=== PATIENT | female | born 1990 | race Caucasian/White ===

== ENCOUNTER 2021-12-31 01:42 | Outpatient (CLI) | payer OTHER, SELFPAY ==
[2021-12-31 16:10] LABS: Kit/Specimen SENT
[2021-12-31 16:28] LABS: Abs Immature Grans 0.04 10^3/uL (0.0-0.06); Absolute Basophil Count 0.03 10^3/uL (0.0-0.2); Absolute Eosinophil Count 0.09 10^3/uL (0.0-0.7); Absolute Monocyte Count 0.87 10^3/uL (0.1-0.8); Absolute Neutrophil Count 8.18 10^3/uL (1.2-6.7); Basophils % 0.3; Eosinophils % 0.8; HCT 39.2 % (36.0-46.0); HGB 13.2 g/dL (11.2-15.7); Immature Grans % 0.4; Lymphocytes % 17.1; MCH 27.8 pg (27.0-33.0); MCHC 33.7 % (32.0-36.0); MCV 82.5 fL (80-95); MPV 10.5 fL (8.0-11.0); Monocytes % 7.8; Neutrophils % 73.6; Nucleated RBC 0 %; Platelet Count 291 10^3/uL (130-400); RBC 4.75 10^6/uL (3.93-5.22); RDW 12.3 % (11.7-14.6); RDW-SD 37.2 fL; WBC 11.11 10^3/uL (4.4-10.8)
[2021-12-31 16:36] LABS: Glucose,1 Hr (Glucola) 89 mg/dL (80-140)
[2021-12-31 16:55] LABS: *AMPHETAMINES SCREEN URINE Negative (Negative); *BARBITURATES SCREEN URINE Negative (Negative); *BENZODIAZEPINES SCREEN URINE Negative (Negative); Cannabinoids THC Negative (Negative); Cocaine Screen,Urine Negative (Negative); METHADONE URINE SCREEN Negative (Negative); OPIATES URINE SCREEN Negative (Negative); Tricyclic Antidepressants Negative (Negative)
[2021-12-31 17:05] LABS: TSH (W/Ref FT4) 0.96 uIU/mL (0.36-3.74)
[2022-01-03 09:12] LABS: Hepatitis B Surface Ag Negative (Negative)
[2022-01-03 10:37] LABS: HIV-1/2 Ag & Ab Screen Negative (Negative)
[2022-01-03 11:56] LABS: Rubella IgG Ab (UVM) Positive (See Note); Varicella IgG Antibody Positive (See Note)
[2022-01-03 12:01] LABS: Hepatitis C Ab w Rflx HCV PCR Negative (Negative)
[2022-01-04 22:06] LABS: Syphilis IgG w/Reflex Nonreactive (Nonreactive)
[2022-01-07 11:21] LABS: Buprenorphine Negative ng/mL (Cutoff: 5.0); Norbuprenorphine Negative ng/mL (Cutoff: 2.5)
== END 2021-12-31 01:43 | disposition home or self-care (01) ==
LOC: LBO 01:43
PROVIDERS: Visit Provider Advanced Practice Midwife
DX: Z34.82 Encounter for supervision of other normal pregnancy, second trimester
CPT/HCPCS: 36415; 80307; 82950; 86787; 86803; 86850; 86900; 86901; 87340; 87389; 84443; 85025; 86762; 86780; 87086

== ENCOUNTER 2022-02-11 20:17 | Outpatient (REF) | payer OTHER, SELFPAY ==
[2022-02-16 15:43] LABS: Chlamydia Result Negative (Negative); GC Result Negative (Negative)
== END 2022-02-11 20:18 | disposition home or self-care (01) ==
LOC: LBN 20:17
PROVIDERS: Visit Provider Advanced Practice Midwife
DX: Z34.92 Encounter for supervision of normal pregnancy, unspecified, second trimester (principal); Z3A.19 19 weeks gestation of pregnancy
CPT/HCPCS: 87491; 87591

== ENCOUNTER 2022-04-13 01:50 | Outpatient (CLI) | payer OTHER, SELFPAY ==
[2022-04-13 12:01] LABS: HCT 34.4 % (36.0-46.0); HGB 11.6 g/dL (11.2-15.7); MCH 27.5 pg (27.0-33.0); MCHC 33.7 % (32.0-36.0); MCV 82 fL (80-95); MPV 9.6 fL (8.0-11.0); Platelet Count 281 10^3/uL (130-400); RBC 4.22 10^6/uL (3.93-5.22); RDW 12.6 % (11.7-14.6); RDW-SD 37.1 fL; WBC 15.28 10^3/uL (4.4-10.8)
[2022-04-13 12:21] LABS: Glucose,1 Hr (Glucola) 121 mg/dL (80-140)
== END 2022-04-13 01:51 | disposition home or self-care (01) ==
PROVIDERS: Visit Provider Advanced Practice Midwife
DX: Z34.93 Encounter for supervision of normal pregnancy, unspecified, third trimester (principal); Z3A.28 28 weeks gestation of pregnancy
CPT/HCPCS: 36415; 82950; 85027

== ENCOUNTER → 2022-06-10 00:03 | Outpatient (CLI) | payer OTHER, SELFPAY ==
--- OUTSIDE RECORDS SUMMARY | 2022-06-10 00:04 | XMS_ITS | Clinical Summary ---
:1990 Author Organization [facility] [place] [address] Care Team Providers Name Role Phone None Primary Care Provider Unavailable Allergies No known active allergies Medications No known medications Active Problems Problem Noted Date Nevus 03/31/2014 Immunizations Name Administration Dates Next Due Moderna Covid-19 (Oyster Buyer 100mcg) Vaccine 02/06/2021, 2020 Family History Medical History Relation Comments Hyperlipidemia Father Hypertension Father Diabetes Maternal Grandfather Bipolar Disorder Paternal Grandmother Relation Status Comments Father Maternal Grandfather Paternal Grandmother Social History Tobacco Use Types Packs/Day Years Used Date Never Smoker Smokeless Tobacco: Never Used Alcohol Use Standard Drinks/Week Comments Yes 0 (1 standard drink = 0.6 oz pure alcoho l) Alcohol Habits Answer Date Recorded How often do you have a drink containing alcohol? 2-4 times a month 10/23/2019 How many drinks containing alcohol do you have on a 1 or 2 10/23/2019 typical day when you are drinking? How often do you have six or more drinks on one Not asked occasion? Comment: Not asked Sex Assigned at Date Recorded Female 10/04/2021 10:44 AM EST Last Filed Vital Signs Vital Sign Reading Time Taken Comments Blood Pressure 118/72 10/04/2021 3:36 PM EST Pulse 78 10/04/2021 3:36 PM EST Temperature 37 ??C (98.6 ??F) 10/04/2021 3:36 PM EST Respiratory Rate 14 10/04/2021 3:36 PM EST Oxygen Saturation 98% 10/04/2021 3:36 PM EST Inhaled Oxygen Concentration - - Weight 107.5 kg (237 lb) 10/04/2021 3:36 PM EST Height 175 cm (5' 8.9) 10/04/2021 3:36 PM EST Body Mass Index 35.1 10/04/2021 3:36 PM EST Plan of Treatment Health Maintenance Due Date Last Done Comments HIV screen 2010 Hepatitis C Screening 2010 Lipid Screening 2010 Tdap adult 2011 Tetanus vaccine 2011 Covid-19 Vaccine (3 - Booster for Moderna 07/09/20212020, 01/09/2021 series) Influenza (Flu) vaccine (1 of - 06/16/2022 Influenza standard series) PAP Smear 03/23/2023 03/23/2020 Insurance Payer Benefit Plan / Subscriber ID Effective Dates Phone Addre ss Type Group WEB TPA WEB TPA [id number] 2020-Present [address] [place] [address] Care Teams Cigar Head Puncher Relationship Specialty Start Date End Date None PCP - General 03/27/20 None
--- OUTSIDE RECORDS SUMMARY | 2022-06-10 00:04 | XMS_ITS | Encounter Summary ---
:1990 Author Organization [facility] Address [address] [place] [address] Care Team Providers Name Role Phone None Primary Care Provider Unavailable Reason for Visit Reason Comments Annual Exam Encounter Details Date Type Department Care Team Description 10/04/2021 Office Visit [facility], Encounter f or annual routine gynecological examination; Radha Jones JAY Hernandez Encounter for IUD removal 10 Radhashahram Castro [address] [place], [place] [address] [address] [place], [place] [phone] [facility] Social History Tobacco Use Types Packs/Day Years [...] Date Recorded Female 10/04/2021 10:44 AM EST documented as of this encounter Last Filed Vital Signs Vital Sign Reading [...] Mass Index 35.1 10/04/2021 3:36 PM EST documented in this encounter Progress Notes Cris Berger PA - 10/04/2021 3:30 PM EST Chief Complaint: 1. Annual exam HPI: Lakesha is a 31 y.o. female who presents today for a routine annual exam. Her menses are regular, has a period every 28 days lasting for 1-2 days. She reports that her bleeding is light. She changes a pad/tampon every 3-4 hour(s) on her heaviest days. She reports no pain/cramping with her period. She is sexually active with . She reports no concerns with intercourse. Breast concerns: She denies lumps, tenderness, skin changes, nipple discharge, or axillary changes. Burlap Man Hx: OB History 0 Para 0 Term 0 0 AB 0 Living 0 SAB 0 IAB 0 Ectopic 0 Multiple 0 Live Births 0 No LMP recorded. (Menstrual status: IUD). Hx of STIs or PID: No Contraception: Mirena IUD, placed 03/27/2020; would like it removed today, she and her desirepregnancy Screening: Last Pap smear/HPV: 03/23/20 Hx of abnormal Paps: No Last mammogram: n/a Last cholesterol: unsure Calcium Intake: adequate Immunizations: Last tetanus: HPV vaccine: unsure COVID: completed Flu: not completed Shingles: n/a Social History: She is recently , lives with her and 2 mireles retrievers Employment/occupation: teacher Exercise regularly: No Has had a lot of life disruption in last 6 months - just bought a house, moving multiple times as work was done, but has created workout room in new house, [facility] - likes strength training and walking the dogs Tobacco use: No Alcohol use: Yes 2 drinks / week Other substance use: No Wears seatbelt on a regular basis: Yes Feels safe in her current environment: Yes History of abuse: None Past Medical, Surgical, and Family History: Patient Active Problem List Diagnosis Code ??? Nevus D22.9 Past Medical History: Diagnosis Date ??? Acne Past Surgical History: Procedure Laterality Date ??? MANDIBLE SURGERY Bilateral 2009 Family History Problem Relation Age of Onset ??? Hypertension Father ??? Hyperlipidemia Father ??? Bipolar Disorder Paternal Grandmother ??? Diabetes Maternal Grandfather Medications: Current Outpatient Medications on File Prior to Visit Medication Sig Dispense Refill ??? [DISCONTINUED] levonorgestreL (MIRENA) 20 mcg/24 hours (5 yrs) 52 mg IUD 1 each by Intrauterine route Continuous (Device). Expected removal date 03/27/25 1 each 0 No current facility-administered medications on file prior to visit. Allergies: No Known Allergies ROS Review of Systems Constitutional: Negative for chills, fever and malaise/fatigue. Respiratory: Negative for shortness of breath. Cardiovascular: Negative for chest pain and leg swelling. Gastrointestinal: Negative for constipation, diarrhea, nausea and vomiting. Genitourinary: Negative for dysuria and hematuria. Negative for vaginal irritation, itching, abnormal discharge, abnormal bleeding, pelvic pain. Neurological: Positive for headaches (more frequent lately but she believes due to stress and dehydration). Negative for dizziness. Physical Exam Vitals: 10/04/21 1536 BP: 118/72 Pulse: 78 Resp: 14 Temp: 37 ??C (98.6 ??F) SpO2: 98% Weight: 107.5 kg (237 lb) Height: 175 cm (5' 8.9) Body mass index is 35.1 kg/m??. Physical Exam General: Well developed female. Skin: no rashes Neck: no thyromegaly or lymphadenopathy Lungs: clear to auscultation bilaterally, no wheezes or rales Heart: RRR, normal S1/S2, no murmurs/rubs/gallops Breasts: no skin changes, no masses palpated, no nipple discharge, no axillary or supraclavicular lymphadenopathy Abdomen: no masses or hepatosplenomegaly; soft, nontender, nondistended Pelvic exam: VULVA: normal appearing vulva with no masses, tenderness or lesions, VAGINA: normal appearing vagina with normal color and discharge, no lesions, CERVIX: normal appearing cervix without discharge or lesions, ectropion 11 - 1 o'clock, IUD strings protruding from os approx 3 cm, UTERUS: uterus is normal size, shape, consistency and nontender, ADNEXA: normal adnexa in size, nontender and nomasses, PAP: Pap smear not performed. Neuro: grossly intact Procedure Note: Mirena IUD REMOVAL Verbal consent obtained. A speculum was placed in the vagina for adequate visualization of the cervix. The Mirena IUD strings were visualized at the os. The strings were gently grasped with a Milan clamp and the Mirena IUD removed intact without complication. It was inspected and noted to be intact.The patient tolerated the procedure well. Assessment and Plan: Lakesha was seen today for annual exam. Diagnoses and all orders for this visit: Encounter for annual routine gynecological examination - Lipid Panel (Reflex Direct LDL); Future Encounter for IUD removal 1. Routine Computer System Validation Specialist exam 2. Pap smear: Pap smear not indicated today, she is due for a Pap in 4 years 3. Contraception: Mirena IUD removed today. Desires . Advised to start vitamins. 4. Screening: Screening for lipid disorders discussed, orders placed, Screening for diabetes discussed, pt declined and Discussed STI screening, offered testing for HIV, Hep C, chlamydia and gonorrhea - pt declined 5. Encouraged regular exercise, Encouraged efforts at weight loss and Encouraged calcium and vitaminD intake FOLLOWUP: Return in about 1 year (around 10/04/2022) for annual exam. JAY Velasco 10/04/2021 documented in this encounter Plan of Treatment Not on filedocumented as of this encounter Visit Diagnoses Diagnosis Encounter for annual routine gynecologic al examination Encounter for IUD removal Encounter for removal of intrauterine co ntraceptive device documented in this encounter Care Teams Smoking Pipe Driller And Threader Relationship Specialty Start Date End Date None PCP - General 03/27/20 None documented as of this encounter
--- OUTSIDE RECORDS SUMMARY | 2022-06-10 00:05 | XMS_ITS | Clinical Summary ---
:1990 Author Organization [facility] Address [address] [place] [address] Care Team Providers Name Role Phone Sabrina Ly MD Primary Care Provider Allergies No known active allergies Medications Medication Sig Dispensed Refills Start Date End Date Status NONFORMULARY Take by mouth daily. 0 Active Sulsamethoxazole Hydromorphone Take 2 mL by mouth 150 mL 0 04/16/2010 Active (DILAUDID) 1 mg/mL every 3 hours as Liqd needed for Pain. chlorhexidine Take 15 mL by mouth 2 1 Bottle 0 04/16/2010 Active (PERIDEX) 0.12 % times daily. solution triamcinolone Apply topically. Apply 1 Tube 1 04/16/2010 Active (KENALOG) 0.1 % to lips as needed. ointment Social History Tobacco Use Types Packs/Day Years Used Date Never Assessed Sex Assigned at Date Recorded Not on file Last Filed Vital Signs Vital Sign Reading Time Taken Comments Blood Pressure 114/63 04/16/2010 0800 EDT Pulse 65 04/16/2010 0800 EDT Temperature 37.1 ??C (98.8 ??F) 04/16/2010 0800 EDT Respiratory Rate 17 04/16/2010 0800 EDT Oxygen Saturation 98% 04/16/2010 0800 EDT Inhaled Oxygen Concentration - - Weight 79.4 kg (175 lb) 04/06/2010 1719 EDT Height 175.3 cm (5' 9) 04/06/2010 1719 EDT Body Mass Index 25.84 04/06/2010 1719 EDT Plan of Treatment Health Maintenance Due Date Last Done Comments COVID-19 Vaccine (1) 1997 Hepatitis C Screen Completed 12/31/2021 Advance Directives For more information, please contact: [phone] Latest Code Status on File Code Status Date Activated Date Inactivated Comments Full Code 04/14/2010 17:53 04/16/2010 14:03 Care Teams Production Planner Scheduler Relationship Specialty Start Date End Date Sabrina Ly MD PCP - General 10/13/09 [address] [place] [address]
--- OUTSIDE RECORDS SUMMARY | 2022-06-10 00:05 | XMS_ITS | Encounter Summary ---
:1990 Author Organization [facility] Address [address] [place] [address] Care Team Providers Name Role Phone Sabrina Ly MD Primary Care Provider Encounter Details Date Type Department Care Team Description 01/01/2022 Lab Requisition [facility] Outr Resulting Lab, Pathology & Laboratory Provider [facility] [address], [place] [address] Social History Tobacco Use Types Packs/Day Years Used Date Never Assessed Sex Assigned at Date Recorded Not on file documented as of this encounter Functional Status Cognitive Status Response Date of Assessment Because of a physical, mental, or emotional condition, do Ye s 04/14/2010 you have serious difficulty concentrating, remembering, or making decisions? (5 years old or older) documented as of this encounter Plan of Treatment Not on filedocumented as of this encounter Procedures Procedure Name Priority Date/Time Associated Diagnosis Comme nts RUBELLA IGG Routine 12/31/2021 15:30 Results for this ANTIBODY EDT procedure are i n the results section. VARICELLA IGG Routine 12/31/2021 15:30 Results fo r this ANTIBODY EDT procedure are i n the results section. documented in this encounter Results VARICELLA IGG ANTIBODY (12/31/2021 15:30 EDT) Varicella IgG Ab PositiveComment: See Note [facility] Presence of LABORATORY SERVICES detectable Varicella Zoster virus IgG antibodies. Specimen Blood - Venous blood (substance) Performing Organization Address City/State/ZIP Code Phon e Number [facility] [address] [place] [address] SERVICES RUBELLA IGG ANTIBODY (12/31/2021 15:30 EDT) Rubella IgG Ab PositiveComment: See Note [facility] Positive for IgG LABORATORY SERVICES antibodies to Rubella virus. Specimen Blood - Venous blood (substance) Performing Organization Address City/State/ZIP Code Phon e Number [facility] [address] [place] [address] SERVICES documented in this encounter Visit Diagnoses Not on filedocumented in this encounter Care Teams Regional Clinical Director Relationship Specialty Start Date End Date Sabrina Ly MD PCP - General 10/13/09 [address] [place] [phone] documented as of this encounter
--- OUTSIDE RECORDS SUMMARY | 2022-06-10 00:05 | XMS_ITS | Encounter Summary ---
:1990 Author Organization [facility] Address [address] [place] [address] Care Team Providers Name Role Phone Sabrina Ly MD Primary Care Provider Encounter Details Date Type Department Care Team Description 10/11/2016 Results Only [facility]- Deisi Noriega, [facility] [phone] [facility] [place] [address] (Wo rk) Social History Tobacco Use Types Packs/Day Years [...] Name Priority Date/Time Associated Diagnosis Comme nts PAP TEST- RESULT Routine 10/11/2016 0:00 EST Resu lts for this ONLY procedure are i n the results section. documented in this encounter Results PAP TEST- RESULT ONLY (10/11/2016 0:00 EST) Pathology Report: CYTOPATHOLOGY REPORT [facility] Reports generated via electronic interface contain pasha ginal data; SERVICES however they are lacking the format of the original re port. Caution should be taken when reading/interpreting unfo rmatted reports. Name: ? LAKESHA BROWN ? Accession #: ? [id number] : ? 1990 (Age: 4 4) ??F ?Collect Date: ? 09/16 Location: ? [facility] ? Receive Date : ? 10/12/2016 Provider: ?DEISI ADAMS PLAY WRITER Copy to: ? Specimen/Source: ? Pap Test, Cervix, ThinPrep Imaging System with manual evaluation Last Menstrual Period: ? 09/15/16 ? SPECIMEN ADEQUACY ? Satisfactory for Evaluation - transformation zone component present GENERAL CATEGORIZATION ? Negative for Intraepithelial Lesion or Malignan cy ? Document reviewed and electronically signed by: ? JARETH Hyde(ASCP) ? Report Date: ??10/17/2016 12:41 End of Report Specimen Performing Organization Address City/State/ZIP Code Phon e Number [facility] [address] [place] [address] SERVICES documented in this encounter Visit Diagnoses Not on filedocumented in this encounter Care Teams Secretary Book Keeper Relationship Specialty Start Date End Date Sabrina Ly MD PCP - General 10/13/09 [address] [place] [phone] documented as of this encounter
--- OUTSIDE RECORDS SUMMARY | 2022-06-10 00:05 | XMS_ITS | Encounter Summary ---
:1990 Author Organization [facility] [place] [address] [place] [address] Care Team Providers Name Role Phone None Primary Care Provider Unavailable Reason for Visit Reason Comments Contraception IUD insertion Encounter Details Date Type Department Care Team Description 03/27/2020 [facility] for [facility]UD insertion; Radha Sage CN Encounter for insertion of intrauterine contraceptive device [address] [place] [address] [place] [address] [phone] Social History Tobacco Use Types Packs/Day Years [...] Sign Reading Time Taken Comments Blood Pressure 110/80 03/27/2020 3:16 PM EDT Pulse 81 03/27/2020 3:16 PM EDT Temperature - - Respiratory Rate - - Oxygen Saturation 98% 03/27/2020 3:16 PM EDT Inhaled Oxygen Concentration - - Weight 103.6 kg (228 lb 6.3 oz) 03/27/2020 3:16 PM EDT Height 175.3 cm (5' 9) 03/27/2020 3:16 PM EDT Body Mass Index 33.73 03/27/2020 3:16 PM EDT documented in this encounter Progress Notes Lizbet Carver CNM - 03/27/2020 3:00 PM EDT ENCOUNTER DATE/TIME 03/27/2020 3:28 PM PROVIDER NAME Lizbet Carver CNM PATIENT NAME Lakesha Kulkarni AGE 29 y.o. GENDER @GENDER@ N # [id number] REASON FOR VISIT : IUD INSERT Subjective: Lakesha is requesting an IUD for control. The risks and benefits of the procedure were discussed in detail with the patient including the risk of uterine perforation, infection, pain,expulsion of IUD and failure of IUD. The increased risk of ectopic if were to occur was also discussed. She elected to proceed with IUD insertion. TIME OUT DONE PRIOR TO INSERTION OF IUD (-) Urine PT test today Objective: Vital signs: BP 110/80 (BP Location (NBP): Left arm, Patient Position: Sitting, BP Cuff Sizes: Large Adult (32-43cm)) Pulse 81 Ht 175.3 cm (5' 9) Wt 103.6 kg (228 lb 6.3 oz) LMP 03/21/2020 (Exact Date) Bimanual Exam Uterus: AV, mobile, firm, smooth, non-tender. Procedure: After bimanual exam, using sterile technique, a sterile speculum was placed and the cervix was swabbed x 3 with a betadine swab. A tenaculum was placed on the cervix at 10:00 and 2:00 and gentle traction was placed. The uterus was sounded to a depth of 6.5 cms. without difficulty. The IUD was loaded into the highway painter helper barrel, and inserted per manufacturers insertion technique. The strings were trimmed to two inches. The patient tolerated the procedure well but after the completion the patient fainted on the table, pale clammy skin. She was roused with cold clothes and stayed laying down. After 20 min she was able to sit and then go to the bathroom. She drank some water and ate a protien bar and was able to go home on her own accord without support. Lot [id number] Exp: Apr 2022 INSTRUCTIONS GIVEN TO Lakesha: ??? During the first month after insertion, check the strings several times, particularly after yourmenstrual period. ??? After the first month, you only need to check the strings after menses if you have: ??? cramping in the lower part of the abdomen, ??? spotting between periods or after intercourse, or ??? pain after intercourse (or if your partner experiences discomfort during sex). ??? Removal of the Mirena is necessary after 5 years but may be done sooner if you wish. ??? Return to the clinic if you: ??? cannot feel the strings, ??? feel the hard part of the IUD, ??? expel the IUD, or ??? miss a period. ??? The IUD is effective immediately. ??? The IUD can come out of the uterus spontaneously, especially during the first few months. ??? There may be some bleeding or spotting the first few days after insertion. ??? Menstrual bleeding usually will be shorter and career coordinator. ??? IUDs do not provide protection against STDs, including the AIDS virus. If either you or your partner is at risk, you should use condoms as well as an IUD Plan: 1. Patient knows to contact the [facility] or other health care provider if developing any of the above problems. 2. Annual Care encouraged for general health assessment and yearly PAP smear. 3. PAP Done previously documented in this encounter Plan of Treatment Scheduled Orders Name Type Priority Associated Diagnoses Order S luci POCT urine Point of Care Routine Encounter for insertion Ord ered: Testing of intrauterine 03/27/2020 contraceptive device documented as of this encounter Visit Diagnoses Diagnosis Encounter for IUD insertion Encounter for insertion of intrauterine contraceptive device Encounter for insertion of intrauterine contraceptive device documented in this encounter Administered Medications Inactive Administered Medications - up to 3 most recent administrations Medication Order MAR Action Action Date Dose Rate Site levonorgestrel (MIRENA) 20 Inserted 03/27/2020 4:59 PM 1 Intra Uter ine mcg/24 hr intra-uterine EDT Device device 1 Intra Uterine Device, Intrauterine, ONCE, 1 dose, On Mon03/27/20 at 1715, Routine documented in this encounter Care Teams Eligibility Counselor Relationship Specialty Start Date End Date None PCP - General 03/27/20 None documented as of this encounter
--- OUTSIDE RECORDS SUMMARY | 2022-06-10 00:05 | XMS_ITS | Encounter Summary ---
:1990 Author Organization [facility] [place] [address] Care Team Providers Name Role Phone Sabrina Ly MD Primary Care Provider Reason for Visit Reason Comments Skin Check Encounter Details Date Type Department Care Team Description 03/31/2014 Office Visit D[facility]atology at [facility] Nevus ( Primary Dx) Yelena BRAMBILA [address] [facility] Bacilio B DERMATOLOGY [place], [place] [id number] [phone] Social History Tobacco Use Types Packs/Day Years Used Date Never Assessed Alcohol Habits Answer Date Recorded How often [...] AM EST documented as of this encounter Progress Notes Nikolas Torres MD - 03/31/2014 3:47 PM EDT Problem: Repeat skin checkup. Radha follows up and is now 23. She no longer has any issues with her acne. 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 She has several concerns. She states that she used her Shane's of Mis deodorant for some time, but found it was no longer efficacious as a deodorant/antiperspirant, and switched to a Secret product. Unfortunately, she developed underarm dermatitis just under one arm. She switched to another deodorant, but it only got worse. She wonders what she can use safely. Also, she would like me to check her moles. After a recent three week trip to [place], she had a sunburn and noticed a change in one of her moles. Patient was working in the summer doing [employer]. 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 She does have a moderate galvan. She has no underarm dermatitis today and no active acne. Assessment and Plan: 1. 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 a. Recommend using a stick type deodorant and using a fragrance free product. b. Before using anything, do a use test first on antecubital fossa area. c. Could consider the option of clindamycin 1% solution and Drysol for antiperspirant. 2. Benign nevi. a. Patient reassured about dermatofibroma on right arm and benign nevi. b. Recommend that the patient try to follow sun avoidance precautions using SPF 30 sunscreen. 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 c. Return to clinic here p.r.n. for new lesions or concerns. COPY: Sabrina Ly M.D. documented in this encounter Plan of Treatment Not on filedocumented as of this encounter Visit Diagnoses Diagnosis Nevus - Primary Benign neoplasm of skin, site unspecifie d documented in this encounter Care Teams Milk Bottling Machine Operator Relationship Specialty Start Date End Date Sabrina Ly MD PCP - General 09/07/10 02/14/20 [address] [place] [address] documented as of this encounter
--- OUTSIDE RECORDS SUMMARY | 2022-06-10 00:05 | XMS_ITS | Encounter Summary ---
:1990 Author Organization [facility] [place] [address] Care Team Providers Name Role Phone Sabrina Ly MD Primary Care Provider Encounter Details Date Type Department Care Team Description 10/23/2019 Abstract [facility], [facility] Information Services [address] [place] [address] Social History Tobacco Use Types Packs/Day Years Used Date Never Smoker Alcohol Use Standard Drinks/Week Comments Yes 0 [...] AM EST documented as of this encounter Plan of Treatment Not on filedocumented as of this encounter Visit Diagnoses Not on filedocumented in this encounter Care Teams Aircraft Quality Control Inspector Relationship Specialty Start Date End Date Sabrina Ly MD PCP - General 09/07/10 02/14/20 [address] [place] [address] documented as of this encounter
--- OUTSIDE RECORDS SUMMARY | 2022-06-10 00:05 | XMS_ITS | Encounter Summary ---
:[address] [facility] Address [address] [place] [address] Care Team Providers Name Role Phone Sabrina Ly MD Primary Care Provider Encounter Details Date Type Department Care Team Description 10/14/2009 Hospital Encounter [facility] Teena Mcdermott, Infectious Disease - [facility] [address] [place], [place] [id number] Social History Tobacco Use Types Packs/Day Years Used Date Never Assessed Sex Assigned at Date Recorded Not on file documented as of this encounter Discharge Disposition Disposition Code Departure Means Destination Auto Discharge Home documented in this encounter Plan of Treatment Not on filedocumented as of this encounter Visit Diagnoses Evaluation - Teena Mcdermott L - 10/14/2009 0000 EST DIVISION OF INFECTIOUS DISEASE NEW PATIENT EVALUATION - 10/14/2009 TRAVEL HEALTH SERVICE Where: [facility] When: 12/13/09 How Lon ?? weeks Purpose: mission Previous: CHIEF COMPLAINT Here for pre-travel counseling. ALLERGIES nkda MEDICATIONS None PAST MEDICAL HISTORY No chronic illness, no recent hospitalizations, no cardiac or pulmonary disease, no hepatitis LAST MENSTRUAL PERIOD Not IMMUNODEFICIENCY None PREVIOUS IMMUNIZATIONS TD 05/24, Hepatitis A 10/12/09, Meningococcal vaccine 05/24, polio series RISK/BENEFIT REVIEW Yellow Fever and malaria maps reviewed. Ms. Kulkarni is going to a Yellow Fever and malaria area. She will receive Yellow Fever vaccine today. We discussed mefloquine vs. Malarone. Ms. Kulkarni would like mefloquine. We also discussed Hepatitis A, typhoid and polio vaccines. She is up to date on HepatitisA and polio vaccines and will receive typhoid vaccine today. She will seek Postexposure vaccine for rabies if necessary. Ms. Catalan mom was with her during this interview and understands and agrees with these plans. X Insect/food/water/sex precautions reviewed. X Patient education handouts given PHYSICAL EXAM Temp: 98.2 BP: 10/60 Weight: Barriers to learning/understanding: none The patient verbalized understanding and agrees with the plan. Total visit time: 20 minutes. Time spent on counseling by provider: 15 minutes IMMUNIZATIONS NEEDED Cholera: Yes/No Date Given Lot # Site 1 Yellow Fever 10/14/09 See flow sheet See flow sheet 2 Typhoid, oral Typhim 10/14/09 See flow sheet See flow sheet 3 MMR 4 Tetanus Diphtheria 05/24 Primary care 5 Meningococcal Vaccine 05/24 Primary care Menomune Menactra 6 Polio (OPV, IPV) 7 Malaria Prophylaxis Chloroquine Malarone Mefloquine #8 Doxycycline Other 8 Immune Globulin WT: 9 Hepatitis A Vaccine 09/23 Primary care Booster 10 Hepatitis B Vaccine Booster x1 month Booster x6 month 11 Influenza 12 Rabies Booster x7 days Booster x28 days 13 J.E.V. Booster x7 days Booster x30 days OTHER ANTIBIOTICS Ciprofloxacin 500 mg BID x 3 days PRN for severe diarrhea Patient advised to sit for 20 minutes. Electronically Signed by CARSON Montiel 10/15/2009 09:55 CARSON Montiel D: - CARSON Montiel - DESTINY Job ID: SM Doc ID: [id number] Ext Doc ID: cc: Sabrina Ly MD documented in this encounter Care Teams Chuck Boner Relationship Specialty Start Date End Date Sabrina Ly MD PCP - General 10/13/09 [address] [place] [phone] documented as of this encounter
--- OUTSIDE RECORDS SUMMARY | 2022-06-10 00:05 | XMS_ITS | Encounter Summary ---
:1990 Author Organization [facility] Address [address] [place] [address] Care Team Providers Name Role Phone Sabrina Ly MD Primary Care Provider Encounter Details Date Type Department Care Team Description 05/07/2015 Results Only [facility]- Deisi Noriega, [facility] [phone] [facility] [place] [phone] (Wo rk) Social History Tobacco Use Types [...] Diagnosis Comme nts PAP TEST- RESULT Routine 05/07/2015 0:00 EDT Resu lts for this ONLY procedure are i n the results section. documented in this encounter Results PAP TEST- RESULT ONLY (05/07/2015 0:00 EDT) Pathology Report: CYTOPATHOLOGY REPORT [facility] Reports generated via electronic interface contain pasha ginal data; SERVICES however they are lacking the format of the original re port. Caution should be taken when reading/interpreting unfo rmatted reports. Name: ? LAKESHA BROWN ? Accession #: ? [id number] : ? 1990 (Age: 4 2) ??F ?Collect Date: ? 05/07 Location: ? [facility] ? Receive Date : ? 05/08/2015 Provider: ?DEISI ADAMS ULTRASOUND TECHNOL Copy to: ?SABRINA LY MD ? Specimen/Source: ? Pap Test, Cervix/Endocervix, ThinPrep Imaging System with manual evaluation Last Menstrual Period: ? 04/24/15 Other: ? Additional clinical information: 1st Pap ? SPECIMEN ADEQUACY ? Satisfactory for Evaluation - transformation zone component present GENERAL CATEGORIZATION ? Negative for Intraepithelial Lesion or Malignan cy ? Document reviewed and electronically signed by: ? Alva Mclain, JARETH(ASCP)(IAC) ? Report Date: ??05/13/2015 17:53 End of Report Specimen Performing Organization Address City/State/ZIP Code Phon e Number [facility] [address] [place] [address] SERVICES documented in this encounter Visit Diagnoses Not on filedocumented in this encounter Care Teams Appliance Service Representative Relationship Specialty Start Date End Date Sabrina yL MD PCP - General 10/13/09 [address] [place] [address] documented as of this encounter
--- OUTSIDE RECORDS SUMMARY | 2022-06-10 00:05 | XMS_ITS | Encounter Summary ---
:1990 Author Organization [facility] Address [address] [place] [address] Care Team Providers Name Role Phone Sabrina yL MD Primary Care Provider Encounter Details Date Type Department Care Team Description 01/01/[address] [facility] Outr Resulting Lab, Pathology & Laboratory Provider [facility] [address] [place] [address] Social History Tobacco Use Types Packs/Day Years [...] encounter Procedures Procedure Name Priority Date/Time Associated Comments Diagnosis HIV 1/2 ANTIGEN AND Routine 12/31/2021 15:30 Resu lts for this ANTIBODY, 4TH EDT procedure are in GENERATION the results section. documented in this encounter Results HIV 1/2 ANTIGEN AND ANTIBODY, 4TH GENERATION (12/31/2021 15:30 EDT) HIV 1 and 2 NegativeComment: If Negative [facility] Antibody/p24 acute HIV-1 LABORATORY Antigen, 4th infection is SERVICES Generation suspected in a high risk patient, submit plasma specimen for HIV-1 RNA quantitation test. Specimen Blood - Venous blood (substance) Narrative [facility] SERVICES - 01/03/2022 10:33 EDT Fourth Generation assay performed on the Siemens Centaur XPT. Performing Organization Address City/State/ZIP Code Phon e Number [facility] [address] [place] [address] SERVICES documented in this encounter Visit Diagnoses Not on filedocumented in this encounter Care Teams Tire Fabricator Relationship Specialty Start Date End Date Sabrina Ly MD PCP - General 10/13/09 [address] [place] [address] documented as of this encounter
--- OUTSIDE RECORDS SUMMARY | 2022-06-10 00:05 | XMS_ITS | Encounter Summary ---
:1990 Author Organization [facility] Address [address] [place] [address] Care Team Providers Name Role Phone Sabrina Ly MD Primary Care Provider Encounter Details Date Type Department Care Team Description 09/08/2010 Office Visit Dermatology Nikolas Torres MD [address] [facility] [address] DERMATOLOGY [place], [place] [address] [place] [address] [phone] (Wo rk) Social History Tobacco Use Types [...] on filedocumented in this encounter Care Teams Food Safety Director Relationship Specialty Start Date End Date Sabrina Ly MD PCP - General 09/07/10 02/14/20 [address] [place] [address] documented as of this encounter
--- OUTSIDE RECORDS SUMMARY | 2022-06-10 00:05 | XMS_ITS | Encounter Summary ---
:1990 [place] [address] Care Team Providers Name Role Phone Unavailable Primary Care Provider Unavailable Reason for Visit Reason Onset Date Comments Medication Refill 03/10/2020 Encounter Details Date Type Department Care Team Description 03/10/2020 [facility]phone [facility] CNM Medication Refill [facility] [place] [address] [place] [address] [phone] Social History Tobacco Use Types Packs/Day Years [...] AM EST documented as of this encounter Miscellaneous Notes Telephone Encounter - [place] Dawn LPN - 03/10/2020 1:48 PM EDT Pt. Will run out of her control lessina prior to her annual appointment . Per [facility] protocol RX was sent to pharmacy so she does not run out. Telephone Encounter - Elyse Araujo - 03/10/2020 1:24 PM EDT Patient called to reschedule new patient appointment that was canceled in December due to Covid. Patient scheduled for 03/23/2020. Patient states she will run out of control about a week before appointment and is requesting another refill to be sent to [facility] documented in this encounter Plan of Treatment Not on filedocumented as of this encounter Visit Diagnoses Diagnosis Constipation, unspecified constipation t ype Encounter for control pills leena horowitz Surveillance of previously prescribed co ntraceptive pill documented in this encounter
--- OUTSIDE RECORDS SUMMARY | 2022-06-10 00:05 | XMS_ITS | Encounter Summary ---
:1990 Author Organization [facility] Address [address] [place] [address] Care Team Providers Name Role Phone Sabrina Ly MD Primary Care Provider Encounter Details Date Type Department Care Team Description 02/12/2022 Lab Requisition [facility] Outr Resulting Lab, Pathology & Laboratory Provider [facility] [address] [place] [address] Social History Tobacco Use Types Packs/Day Years [...] Procedure Name Priority Date/Time Associated Comments Diagnosis CHLAMYDIA/N. Routine 02/11/2022 15:25 Results for this GONORRHOEAE AMPLIFIED EDT proced ure are in RNA the results section. documented in this encounter Results CHLAMYDIA/N. GONORRHOEAE AMPLIFIED RNA (02/11/2022 15:25 EDT) Pathologist Sig nature Gonococcus Result Negative Negative [facility] Chlamydia Result Negative Negative [facility] Specimen Urine - Urine, Initial Void Narrative [facility] - 02/16/2022 15:37 EDT A first catch urine specimen is acceptab le for detection of Gonorrhea and Chlamydia, but might detect up to 10% fewer infecti ons when compared with vaginal and endocervical swab samples. Performing Organization Address City/State/ZIP Code Phon e Number [facility] [address] [place] [address] SERVICES documented in this encounter Visit Diagnoses Not on filedocumented in this encounter Care Teams Security Incident Handler Relationship Specialty Start Date End Date Sabrina Ly MD PCP - General 10/13/09 [address] [place] [address] documented as of this encounter
--- OUTSIDE RECORDS SUMMARY | 2022-06-10 00:05 | XMS_ITS | Encounter Summary ---
:1990 Author Organization [facility] Address [address] [place] [address] Care Team Providers Name Role Phone Sabrina Ly MD Primary Care Provider Encounter Details Date Type Department Care Team Description 01/01/2022 Lab Requisition [facility] Outr Resulting Lab, Pathology & Laboratory Provider [facility] [address] [place] [address] Social History Tobacco Use Types Packs/Day Years [...] Name Priority Date/Time Associated Diagnosis Comme nts HEPATITIS C AB W Routine 12/31/2021 15:30 Results for this REFLEX TO HCV RNA EDT procedure are in BY PCR the results section. HEPATITIS B SURFACE Routine 12/31/2021 15:30 Resu lts for this ANTIGEN EDT procedure are i n the results section. documented in this encounter Results HEPATITIS B SURFACE ANTIGEN (12/31/2021 15:30 EDT) Pathologist Sig nature Hep B Surface Ag Negative Negative [facility] Specimen Blood - Venous blood (substance) Performing Organization Address City/State/ZIP Code Phon e Number [facility] [address] [place] [address] SERVICES HEPATITIS C AB W REFLEX TO HCV RNA BY PCR (12/31/2021 15:30 EDT) Pathologist Sig nature Hep C Antibody Negative Negative [facility] Specimen Blood - Venous blood (substance) Performing Organization Address City/State/ZIP Code Phon e Number [facility] [address] [place] [address] SERVICES documented in this encounter Visit Diagnoses Not on filedocumented in this encounter Care Teams Undercover Cop Relationship Specialty Start Date End Date Sabrina Ly MD PCP - General 10/13/09 [address] [place] [phone] documented as of this encounter
--- OUTSIDE RECORDS SUMMARY | 2022-06-10 00:05 | XMS_ITS | Encounter Summary ---
:1990 Author Organization [facility] Address [address] [place] [address] Care Team Providers Name Role Phone Sabrina Ly MD Primary Care Provider Encounter Details Date Type Department Care Team Description 04/14/2010 - Hospital Encounter [facility] Children's Gomez Feliz, 04/16/2010 [facility] Pediatric DMD [address] [facility] [address] [place] [address] [place] [phone] (Wo rk) Social History Tobacco Use Types Packs/Day Years Used Date Never Assessed Sex Assigned at Date Recorded Not on file documented as of this encounter Last Filed [...] Body Mass Index 25.84 04/06/2010 1719 EDT documented in this encounter Functional Status Cognitive Status Response Date of Assessment Because of a physical, mental, or emotional condition, do Ye s 04/14/2010 you have serious difficulty concentrating, remembering, or making decisions? (5 years old or older) documented as of this encounter Discharge Summaries Gibran Barger - 04/16/2010 0848 EDT Discharge Summary Chief Complaint/Reason for Admission: Transverse maxillary hypoplasia, posterior vertical maxillary hyperplasia, mandibular hypoplasia Principal/Final Diagnosis: Transverse maxillary hypoplasia, posterior vertical maxillary hyperplasia, mandibular hypoplasia Principal Procedure: Segmental LeFort 1 osteotomy, bilateral sagittal split osteotomies with rigid fixation Date: 04/14/2010 Secondary Procedures: None Condition at Discharge: Good Assessment at Discharge: Vital signs: Patient Vitals in the past 12 hrs: BP Temp Temp src Pulse Resp SpO2 Height Wt - Scale 04/16/10 0800 114/63 mmHg 37.1 ??C (98.8 ??F) - 65 17 98 % - - 04/16/10 0638 - 36.4 ??C (97.5 ??F) - 80 18 - - - 04/16/10 0000 - 36.5 ??C (97.7 ??F) - 80 16 99 % - - Hospital Course: 19 year old female presents to [facility] on 04/14/2010 for surgical management of Transverse maxillary hypoplasia, posterior vertical maxillary hyperplasia and mandibular hypoplasia. The surgery performed was Segmental LeFort 1 osteotomy, bilateral sagittal split osteotomies with rigid fixation. The surgery was unremarkable and the end result was satisfactory. The patient was then sent to PACU for monitoring and recovery. Patient was then sent to [place] [address]. Cefazolin, Morphine SYSTEMS INTEGRATION ANALYST, Decadronand IV fluids were given per routine. On post-op day 1 patient had some difficulty with pain controland PO intake, moved to PO meds and increased ambulation. Post-op day 2 patient had adequate pain control and adequate PO intake. Patient ready to go home. Discharge this AM of 04/16/2010. cc: Sabrina Ly MD @REFP@ Dr. Gomez Feliz Discharge Summary Completed: Dr. Gibran Barger documented in this encounter Discharge Instructions Gibran Singh - 04/15/2010 Diet: Fully blenderized Activity Restrictions: Bed rest and minimal activity for first 24 hours after discharge , No activity that could result in blow to head or face, No driving while on pain medication and Passive jaw movement as tolerated. Do not over exert. Treatments: Apply ice to face as needed. Rinse with Peridex Oral Rinse 2 times per day. Bathing: No restrictions Pending Results: Not applicable Symptoms to Call Your Doctor About: Fever greater than 101 or chills Inability to swallow or increasing difficulty swallowing Increased or new pain Nausea or vomiting Pain unrelieved by medication Signs of infection such as pain, redness, swelling or drainage at procedure or wound site Appointments: See Gomez Peters, MARIZOL. Please call for an appointment. Follow-up Services Contacted at Discharge: none Health Risk and Disease Information: Not applicable documented in this encounter Medications at Time of Discharge Medication Sig Dispensed Refills Start Date End Date chlorhexidine Take 15 mL by mouth 2 1 Bottle 0 04/16/2010 (PERIDEX) 0.12 % times daily. solution Hydromorphone Take 2 mL by mouth every 150 mL 0 04/16/20 10 (DILAUDID) 1 mg/mL 3 hours as needed for Liqd Pain. NONFORMULARY Take by mouth daily. 0 Sulsamethoxazole triamcinolone Apply topically. Apply 1 Tube 1 04/16/2010 (KENALOG) 0.1 % to lips as needed. ointment cephALEXin (KEFLEX) Take 5 mL by mouth every 100 mL 0 04/21/2010 250 mg/5 mL 6 hours for 5 days. suspension documented as of this encounter Ordered Prescriptions Prescription Sig Dispensed Refills Start Date End Date triamcinolone (KENALOG) Apply topically. 1 Tube 1 2009 0.1 % ointment Apply to lips as needed. chlorhexidine (PERIDEX) Take 15 mL by mouth 1 Bottle 0 11/2009 0.12 % solution 2 times daily. Hydromorphone (DILAUDID) 1 Take 2 mL by mouth 150 mL 0 0 04/16/2010 mg/mL Liqd every 3 hours as needed for Pain. cephALEXin (KEFLEX) 250 Take 5 mL by mouth 100 mL 0 07/11/200904/21/2010 mg/5 mL suspension every 6 hours for 5 days. documented in this encounter Discharge Disposition Disposition Code Departure Means Destination Home or Self Care documented in this encounter Progress Notes Carla Underwood, RN - 04/16/2010 1007 EDT Late entry- Assessment by nurse performed at 0755, pt complaints of 2/10 pain, denies need for medication at this time, agree with student's assessment, mother and pt deny any questions at this time, pt without any evidence of apparent distress noted at this time, noel celeste Gibran Ramsey - 04/16/2010 0805 EDT Rounding post-op day 2. Dr Feliz present. S: patient resting in bed, patient feels she has good pain control. O: BP 114/62 Pulse 80 Temp 36.4 ??C (97.5 ??F) Resp 18 Ht 1.753 m (5' 9) Wt 79.379 kg (175 lb) SpO2 99%. No fever, mild midface edema, alert and oriented. A: satisfactory progress post-op. P: encourage continued/additional PO fluids and ambulation, probable discharge this morning. Beatriz Najera RN - 04/16/2010 0639 EDT Pt able to make needs known, pt requested that I wake her for her pain meds overnight. Woke pt at 2300 and gave tylenol and dilaudid as ordered. Pt back to sleep with out complaint. Woke pt again at 0400 to asses pain and offer meds. Pt declined at that time. Back to sleep. Woke at 0615 and request pain meds. Pt c/o difficulty swallowing water and meds. Gave a few sips of water to wet her mouth with much improvement. Able to swallow meds and water with out little difficulty. Encouraged pt again to push PO fluids. She has been reluctant to take PO during the evening hours. Pt request to have humidified air on to help with comfort. Reinier Andrews MD - 04/15/2010 1720 EDT Images from the original note were not included. Pediatric Progress Note Chief Complaint: post-op day 1 from maxillofacial surgery Subjective: Overnight events: No significant events overnight. This morning Lakesha reports good pain control with her SYSTEMS INTEGRATION ANALYST. She was up and ambulating throughout the day. She was switched to oral pain medication during the day and continued to have good pain control. Review of Systems: Pertinent items are noted in Subjective/HPI A complete review of systems was performed and was negative except as noted above. Objective: In: 4249.9 (190 [address] 4[address]9 I.V.) Out: 4050 (3350 Urine) Temp: [36 ??C (96.8 ??F)-37 ??C (98.6 ??F)] , Pulse: [70-84] , Resp: [12-17] , BP: (102-120)/(58-76), SpO2: [97 %-100 %] Last 3 Encounter Wt Readings: Admission (Current) on 04/14/2010 04/06/2010 5:19 PM Weight: 79.379 kg (175 lb) In: 4249.9 (190 [address]9 I.V.) Out: 4050 (3350 Urine) Current hospital medications Medication Route Frequency ??? sodium chloride 0.9 % flush 3 mL Intravenous Q8H ??? Hydromorphone (DILAUDID) liquid 2 mg Oral Q4H PRN ??? ondansetron (PF) (ZOFRAN) injection 2-4 mg Intravenous Q6H PRN ??? triamcinolone (KENALOG) 0.1 % ointment Topical TID ??? dexaMETHasone (DECADRON) injection 10 mg Intravenous Q6H ??? acetaminophen (CHILDREN'S TYLENOL) solution 650 mg Oral Q4H PRN ??? acetaminophen (TYLENOL) 650 mg/20.3 mL solution General: An adolescent girl, lying in bed HEENT: Pupils equal round and reactive to light, mucus membranes moist Lungs: Clear to auscultation bilaterally, no increased work of breathing CV: Normal S1/S2, no murmurs Abdomen/Rectum: Soft, nondistended, nontender : Deferred Skin: Mild facial acne, no other rashes noted Neurologic: Alert and oriented Assessment: Lakesha Kulkarni is admitted after segmental Lefort I osteotomy and bilateral sagittal split osteotomies with rigid fixation for transverse maxillary hypoplasia, posterior vertical maxillary hyperplasia, and mandibular hypoplasia. Overall is doing well and will likely be discharged tomorrow. There is no problem list on file for this patient. Plan: Post-op from maxillofacial surgery: Able to switch from SYSTEMS INTEGRATION ANALYST to oral pain medication today. No airwayissues. - Continue pain meds Dilaudid 2 mg q4h, Tylenol 650 mg - Continue Decadron for possible airway edema - Pain team is following FEN: tolerating a clear liquid diet through a syringe. - d/c IVF - Continue full iquid diet - Zofran PRN nausea Disposition: plan to d/c home tomorrow per oral-maxillofacial surgery. PCP is Dr. Ly. PATIENT AND FAMILY SUPPORT: Discussed plan with parent. Will involve Child Life and Social Work as necessary. Tala Castellon RN - 04/15/2010 2748 EDT Pediatric Brief Assessment Case Management and Social Work reviewed the patient's chart, face sheet and nursing documentation and has discussed the patient's situation with the medical team. I met with Lakesha and her mother in their room. Lakesha is s/p dental surgery and had some post operative pain. Lakesha's mother is Susan and she states that they have a large family and good support people. I have let them know about resources such as the parking validation,[facility]win [facility] room and meal voucher. Both parents are self employed- father is a metallurgical engineering technician and mother is a drop pit worker. We have identified no case management needs at this time. Please page the case maker if utilization review or discharge planning issues arise or if there are barriers to the patient's discharge. 3D Specialist: Tala Griffin RN Beeper: [id number] Clara Rodriguez - 04/15/2010 0905 EDT Post Anesthesia Evaluation Date of Service: 04/15/2010 The patient has been evaluated and assessed. If present, post anesthetic events are documented below. Procedure detail: Anesthesia Type: General Level of Consciousness: Awake;Oriented BP 114/65 Pulse 70 Temp 36.5 ??C (97.7 ??F) Resp 12 Ht 1.753 m (5' 9) Wt 79.379 kg (175 lb) SpO2 100% Vital Signs: Stable Pulmonary Status: Coughing/deep breathing Post Op Pain: Utilizing SYSTEMS INTEGRATION ANALYST with good effect Additional follow up needed: No Perioperative events: General Events: None CLARA BEARD MD 04/15/2010 9:54 AM Gibran Ramsey - 04/15/2010 0915 EDT Rounding post op day [address] Dr. Feliz present. S: Patient resting in bed, alert. O: BP 114/65 Pulse 70 Temp 36.5 ??C (97.7 ??F) Resp 12 Ht 1.753 m (5' 9) Wt 79.379 kg (175 lb) SpO2 100%. Pt using SYSTEMS INTEGRATION ANALYST, moderate midface edema, occlusion stable. A:Satisfactory progress post-op. P: Discontinue SYSTEMS INTEGRATION ANALYST, transition to PO analgesics. Encourage PO fluids, decrease rate of IV fluids. Encourage pt ambulation. Probable discharge this afternoon. Audrey Sanford MD - 04/15/2010 0846 EDT Images from the original note were not included. Pediatric Progress Note Chief Complaint: Maxillofacial surgery Subjective: Lakesha is a 19 y.o. previously healthy hospitalized s/p segmental Lefort I osteotomy and bilateral sagittal split osteotomies with rigid fixation for transverse maxillary hypoplasia, posterior vertical maxillary hyperplasia, and mandibular hypoplasia. She tolerated the procedure well and reports 1/10pain with SYSTEMS INTEGRATION ANALYST and tylenol for pain. She has no nausea and has been tolerating clear fluids. Ambulated to the bathroom to void. Past medical history significant for acne for which she is treated with antibiotics. No other medications. No allergies. PCP: Dr. Sabrina Ly Review of Systems: Pertinent items are noted in Subjective/HPI A complete review of systems was performed and was negative except as noted above. Objective: In: 4119.9 (60 [address] 4009.9 I.V.) Out: 3700 (3000 Urine) Temp: [35.9 ??C (96.6 ??F)-37 ??C (98.6 ??F)] , Pulse: [71-80] , Resp: [12-17] , BP: (102-120)/(61-76) , SpO2: [97 %-100 %] Last 3 Encounter Wt Readings: Admission (Current) on 04/14/2010 04/06/2010 5:19 PM Weight: 79.379 kg (175 lb) In: 4119.9 (60 [address]9 I.V.) Out: 3700 (3000 Urine) Current hospital medications Medication Route Frequency ??? lactated ringers (LR) infusion Intravenous CONTINUOUS ??? dextrose 5 %-0.45 % sodium chloride infusion Intravenous CONTINUOUS ??? ondansetron (PF) (ZOFRAN) injection 2-4 mg Intravenous Q6H PRN ??? HYDROmorphone 1 mg/ml (DILAUDID) SYSTEMS INTEGRATION ANALYST syringe, 30 ml Intravenous CONTINUOUS ??? CEFAZolin (ANCEF) 1,000 mg in sodium chloride 0.9 % 50 mL IVPB Intravenous Q8H ??? triamcinolone (KENALOG) 0.1 % ointment Topical TID ??? dexaMETHasone (DECADRON) injection 10 mg Intravenous Q6H ??? acetaminophen (CHILDREN'S TYLENOL) solution 650 mg Oral Q4H PRN ??? acetaminophen (TYLENOL) 650 mg/20.3 mL solution General: awake, interactive, no acute distress HEENT: PERRL, no rhinorrhea, bandage with ice wrapped around chin for palliation and swelling, no active oral bleeding, unable to open mouth >0.5cm Lungs: breathing comfortably, clear to auscultation bilaterally CV: regular rate and rhythm, normal S1 and S2, without murmurs, gallops or rubs Abdomen/Rectum: normoactive bowel sounds, soft, non-tender, non-distended Skin: no rashes or lesions Neurologic: alert, awake, interactive Vascular Access: PIV, SYSTEMS INTEGRATION ANALYST Assessment: Lakesha Kulkarni is admitted for maxillofacial surgery and is doing well with no nausea and pain well-controlled, tolerating clear fluids and voiding independently. Plan: Facial Surgery: Pain well-controlled, no active bleeding. - Cefazolin 1000mg IV q8h x 3 doses (last dose 04/15 at 08:00) per dental surg plan. - Dexamethasone 10mg IV q6h per dental surg plan. - Ondansetron prn for nausea - Acetaminophen and SYSTEMS INTEGRATION ANALYST for pain control per dental surg plan - Ice for swelling and pain Fluids and Nutrition: Patient appears well hydrated and is able to take PO liquid. - Continue IVFs with D51/2NS at 100cc/hr - Clear liquid diet Acne: Continue sulfamethoxazole per home regimen. Dispo: Pending dental surgery plan. Prepared by: Audrey Hughes MD ([phone]) Jihan Navarro RN - 04/15/2010 0130 EDT Active Multi-Disciplinary problems: PAIN [96734] (04/15/10) PSYCHOSOCIAL [05869] (04/15/10) TREATMENTS AND PROCEDURES [54714] (04/15/10) Data: triamcinolone ordered for patient topically 3 times daily but there is no indication for specific site or purpose of application in either note or MAR Action: RN consulted pedi residents and they were unaware of purpose. RN paged concrete truck driver dental surgeon Dr Fernandez but page was not returned. Response: RN will wait until further information until administering dose. Jihan Muniz RN 04/15/2010 1:38 AM Duglas Armas - 04/14/2010 5944 EDT Post Anesthesia Evaluation Date of Service: 04/14/2010 The patient has been evaluated, assessed and discharged from anesthesia care with stable cardiorespiratory function and acceptable mental status, pain management, body temperature, fluid balance, and nausea/vomiting control. Additional monitoring and assessment needs have been addressed. If present, po stoperative events are documented below. DUGLAS CALDWELL MD 04/14/2010 6:55 PM Lynn Baker RN - 04/14/2010 1839 EDT laborer turkey farm started per MD orders pt able to demonstrate use may need encouragement and reinforcement due tobeing sleepy. Lynn Baker RN - 04/14/2010 1812 EDT Pt received from OR via bed, pt drowy, jobst and ice applied to pt. pts mom at bedside. Vee Powell - 04/14/2010 1200 EDT Child life services were introduced to Lakesha and her mother. Lakesha is going into her senior yearof high school at a boarding school in [place]. 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 Lakesha also went on a mission trip [facility] this past year and built a house for a doctor andwent on a [facility]. She had no educational needs at this time. Child life will continue to follow her throughout her hospitalization. Vee Powell, CCLS Certified Change Management Manager Pager: [phone] signed by Vee Powell at 04/14/2010 13:02 EDT Kimberly Mcdonald RN - 04/06/2010 1742 EDT Lakesha Kulkarni has been instructed as follows regarding medication administration for the day of thescheduled procedure. Date of Surgery: 04/14/2010 Instructions for Taking Medications Day of Surgery Medication Last Dose Hold DOS Take DOS NONFORMULARY--Sulsamethoxazole Yes documented in this encounter H&P Notes Physician Dias MD - 04/20/2010 2305 EDT documented in this encounter Nursing Notes Physician Dias MD - 04/15/2010 0906 EDT documented in this encounter OR Notes OR PreOp - Physician Dias MD - 04/20/2010 2305 EDT R Gomez Reeves DMD - 04/16/2010 0726 EDT S: Pt feeling well and wants to go home O: Mild swelling Satis occlusion Maxilla well profused VSS Good po intake A: Satis post op course P: OK for discharge this AM Discussed post op management with patient and mother R Surgeon Gomez Cabrera DMD - 04/15/2010 1834 EDT S: Pt feels she has good pain control and taking po fluid O: Visiting with 3 visitors mild edema Alert and oriented A: Satis progress P: discharge to home tomorrow AM nesthesia Procedure Notes - Physician Dias MD - 04/14/2010 1800 EDT R PreOp - Physician Dias MD - 04/14/2010 1725 EDT Anesthesia Preprocedure Evaluation - Physician Dias MD - 04/14/2010 1333 EDT R Gomez Reeves DMD - 04/14/2010 0000 EDT OPERATIVE REPORT SERVICE DATE: 04/14/2010 PREOPERATIVE DIAGNOSIS: 1. Posterior vertical maxillary hyperplasia and transverse hypoplasia. 2. Mandibular asymmetry. POSTOPERATIVE DIAGNOSIS: 1. Posterior vertical maxillary hyperplasia and transverse hypoplasia. 2. Mandibular asymmetry. PROCEDURE: LeFort I 2-part maxillary osteotomy and bilateral sagittal split mandibular osteotomies. SURGEON: Gomez Feliz DMD LIVING COACH: Rigoberto Fraire DMD, Millie Mercado DDS, Wesly Barger DDS ANESTHESIA: General. ESTIMATED BLOOD LOSS: 750 mL. FLUIDS: 3400 mL lactated Ringers. COMPLICATIONS: Minor tissue burn to right lower lip secondary to instrument heating. INDICATIONS: This 19-year-old female has had a longstanding history of severe malocclusion interfering with her ability to masticate foods properly and also contributing to complaints of facial pain. She was seen and evaluated by Dr Michael Robles who diagnosed her underlying skeletal deformities and then instituted orthodontic realignment of her teeth in preparation for skeletal corrective surgery. She presents to [facility] today for that procedure. NARRATIVE: Under general anesthesia with nasoendotracheal intubation, the patient was prepped and draped in the standard manner for intraoral osteotomies as well as transfacial placement of rigid fixation screws. A throat pack was placed. Using a jesus alberto jessica, several teeth had minor occlusal adjustments done as has been indicated by the model workup. Then the mandibular surgical sites were infiltrated with 0.5% Marcaine with 1:200,000 epinephrine. Attention was first directed to the patient's left mandibular surgical site where a linear incision was made along the left anterior ascending ramus, extending through the retromolar area and in the buccal sulcus along the oblique ridge of the mandible. Periosteum was elevated on the lateral aspect ofthe mandible to the inferior border in the molar and retromolar area. A J-stripper was introduced and the digastric attachment was elevated. Then, using the temporalis elevator, the temporalis muscle at the anterior border of the ascending ramus was elevated and then the periosteum by the medial aspect of the ramus was elevated, exposing the lingula and the concavity inferior to the sigmoid notch of the mandible. With the tissues retracted and using irrigation on all bone cutting procedures, the reciprocating saw was used to make a horizontal bone cut on the medial aspect of the mandible. It was 2 mm above the lingula and extended from the concavity posterior to the lingula to the anterior border of the ascending ramus. This bone cut was carried to the depth of the marrow space only. Then it was extended along the anterior border of the ascending ramus along the oblique ridge of the mandible. Again, the bone cut was carried to the depth of the marrow space only. A 4 mm round jessica was then used to continue the cut in an inferior direction at the widest portion of the mandible in the 1st and 2ndmolar region, and then using the reciprocating saw, the inferior border osteotomy site was started. The area was irrigated and then attention directed to the patient's right side, where the identical soft tissue dissection and bone cuts were made. The maxillary vestibule was then infiltrated with 0.5%Marcaine with 1:200,000 epinephrine. It should be noted too that a nonthreaded Roxanna pin was placed in the bridge of the nose for vertical referencing the central incisor height. Then using a 15 blade, a horizontal incision was made at the height of the buccal vestibule of the maxilla, extending from the upper left 1st molar to the upper right 1st molar. Periosteum was elevated superiorly to the level of the infraorbital nerves bilaterally. These nerves were identified. Then, periosteum was elevated under the malar buttress to the pterygomaxillary junctions bilaterally. The nasal mucosa was visualized at the piriform rim region. This was injected with 0.5% Marcaine with 1:200,000 epinephrine, and then using curettes and the [place] elevator, the nasal mucosa was elevated from the superior aspectof the palate. Using a small round jessica, marking points were made over the canine and 1st molar teeth in the sinus wall. These were placed to be parallel to the [place] horizontal plane. Then using the reciprocating saw, a horizontal bone cut was made that extended from the piriform rim through the marking points on the left side under the malar buttress to the pterygomaxillary junction. This was similarly done on the right side. At the midline of the maxilla, a small round jessica was used to make a vertical bone cut through the cortical plate between the central incisors. Then using the double-guarded osteotome, the cartilaginous and bony septum were from the superior aspect of the palate. Using the single-guarded osteotome, the lateral nasal jean were from their palatal attachments bilaterally. Then using a fine straight osteotome, the midline osteotomy between the centralincisors was completed. Then, the pterygomaxillary osteotome was introduced on the patient's right side and malleted to separate the maxilla at the pterygomaxillary junction. This was similarly done onthe left side. The maxilla was then down fractured. A J-stripper was used to separate the soft tissue attachment at the posterior border of the hard palate and then a moose retractor placed into position. Remnants of the lateral nasal wall were reduced using rongeurs and remnants of the bony septum were also reduced at the midline using a 4 mm round jessica. Both descending palatal arteries were identified and remained intact. Then using a 4 mm round jessica, a bone cut was made medial to the lateral nasal wall extending from the posterior border of the palate paralleling the nasal wall to the anterior region where it was then brought to the midline near where the central incisor osteotomy cut was completed. In doing this cut, there appeared to be arterial leakage from the anterior palatal artery. The greater palatine artery was then clamped using Weck clips to control this bleeding and prevent postoperative hemorrhage. With completion of the bone cut on the palate, the maxilla was into 2 pieces, allowing for transverse expansion of the maxilla. A prefabricated acrylic splint was then ligated to the orthodontic appliances. Then, a secondary splint for positioning the maxilla was placed between the maxillary splint and the mandibular teeth. This was placed into intermaxillary fixation by ligating the orthodontic appliances of the maxilla and mandible together. Then the maxilla was rotated superiorly with the mandible in the seated condylar position. Bone interferences posteriorly were reduced using a 4 mm round jessica and the Kerrison rongeurs. Once adequate bone reduction had been done to allow for proper position of the maxilla, this was confirmed using the Steinmann pin measured to the maxillary orthodontic (on the central incisors). The area was thoroughly irrigated and then rigid fixation applied. In the piriform rim region, L-type plates were placed. There were two holes superior to the osteotomy and three inferior to the osteotomy site. They were bent to conform to the anatomyof the bone in the area and standard technique was used to place 6 mm length Synthes screws. In the m alar buttress region, X-type plates were bent to conform to the anatomy with 2 screws above the osteotomy site and 2 inferiorly. Again, standard drilling technique was used to place 6 mm Synthes screws. With completion of the rigid fixation on the maxilla, intermaxillary fixation was released and the patient's maxilla determined to be in the desired postoperative occlusion. Attention was then directed to the patient's left side, where using fine osteotomes, the Landis kiln remover and the inferior border osteotome, the sagittal osteotomy was completed. The mandibular nerve wasdissected free from the proximal segment and remained totally intact. The J-stripper was introduced and the medial pterygoid muscle attachment released. This was similarly done on the patient's right side. The patient was then placed again in intermaxillary fixation, positioning the mandibular dentition into the maxillary splint. Again, 26 gauge stainless steel wire was used. Attention was first directed to the patient's left side and the Sailaja clamp was used to stabilize the bony segments once the condyle was placed in the seated condylar position and the inferior borders of the proximal and distal segments were parallel. Then using a 15 blade, a small skin incision wasmade and blunt dissection carried through the cheek. The Synthes tissue protector was placed throughthe cheek and 3 bicortical screws were placed in the retromolar area, securing the proximal and distal fragments. The tissue protector was then removed and attention directed to the patient's right side, where the identical procedure was performed. Intermaxillary fixation was released. The occlusion was checked. There appeared to be some splint interference so the splint was removed and the patient'socclusion seemed to be in the desired postoperative position. All wounds were thoroughly irrigated and then the mandibular wounds closed with 4-0 Rapide in a continuous interlocking fashion. In the maxilla, 2-0 Vicryl suture was placed in an alar cinch suture fashion end to reestablish the nasal widthat the presurgical width. At the midline, a V-Y closure was accomplished using 4-0 Rapide in a continuous interlocking fashion. The remainder of the horizontal incision was closed using 4-0 Vicryl in acontinuous interlocking fashion. The oral cavity was again thoroughly irrigated and suctioned free of all debris. The throat pack removed and the oropharynx suctioned. An orogastric tube was passed to evacuate any fluids that have accumulated in the stomach. Guide elastics were placed bilaterally. Thepatient's face was thoroughly cleansed and Steri-Strips placed over the small skin incisions. Following extubation, the patient was returned to the recovery room in satisfactory condition. I was present for the entire surgical procedure. Unless otherwise noted, there were no complications, no blood loss, no cultures obtained, no specimens removed, and no drains retained. Dictated by: Gomez Feliz DMD Gmoez Feliz DMD 05 52 PM / mt Confirmation: [id number] Dictation ID: [id number] cc:Rigoberto Barger DDS Millie Chacko DDS Gomez Robles DDS documented in this encounter Miscellaneous Notes Scanned Note-Null - Physician Dias MD - 04/20/2010 2305 EDT canned Note-Null - Physician Dias MD - 04/20/2010 2305 EDT canned Note-Null - Physician Dias MD - 04/20/2010 2305 EDT lan of Care - Madison Diaz - 04/15/2010 1102 EDT Problem: PAIN Goal: Patient's Pain/Discomfort Is Manageable Intervention: Assess effectiveness of pain management D: Pt reported pain was 3/10. SYSTEMS INTEGRATION ANALYST d/reg and pt administered 10 mg oxycodone at 1000. At 1045 pt reported that pain had risen to 5/10 and that she felt considerable difference from pain management with SYSTEMS INTEGRATION ANALYST. A: Pt offered 650 mg of acetaminophen. R: CTM and alert team if pain does not decrease. A: Pt reports pain is still 5/10 at 1200. R: Order changed to 2 mg of Dilaudid. Administered at 1325. CTM. lan of Care - Jihan Muniz RN - 04/15/2010 0136 EDT Problem: PAIN Goal: Patient's Pain/Discomfort Is Manageable Intervention: Assess pain level Patient's pain level has been well within comfortable range this evening. Occasionally spiking to 4/10 but SYSTEMS INTEGRATION ANALYST plus Acetaminophen is successfully holding pain to 1/10 at most assessments Intervention: Assess characteristics of pain Sharp/dull located in jaw Intervention: Include patient in decisions related to pain management Patient was fearful of sleeping through SYSTEMS INTEGRATION ANALYST dosing and waking up in pain and asked for acetaminophendose before sleeping Intervention: Administer analgesics as ordered SYSTEMS INTEGRATION ANALYST set as ordered and acetaminophen given within dosing parameters Intervention: Offer non-pharmacological pain management interventions Two episodes of icing Intervention: Assess effectiveness of pain management Re-assess patient for pain level 30 - 60 minutes after pain management intervention. Pain is at present well controlled per patient report Problem: PSYCHOSOCIAL Goal: Demonstrates Ability To [place] With Hospitalization There was great concern upon admission that patient would not cope well with surgery and hospitalization as her boyfriend was recently and he was a primary source of emotional support. However, throughout the evening patient has been quite happy and without noticeable distress. Intervention: Encourage patient to verbalize feelings Verbalize feelings, concerns and expectations. Patient has yet to discuss passing of boyfriend with RN but in all other realms she is very open. She expresses a wish to stay another night because she does not think she will be ready to go home. She needed some reassurance that it was within normal expectations for her to stay another night and RN let her know she was fine to go at her own pace. However, RN did discuss with her that tomorrow would likely bring great improvement. rief Op Note - David Chackoia - 04/14/2010 1723 EDT Surgeon: Dr. Feliz, Dr. Fraire Assistants: Dr. Barger, Dr. Fernandez Pre op dx: Transverse maxillary hypoplasia, posterior vertical maxillary hyperplasia, mandibular hypoplasia Post op dx: Same Procedure: Segmental Le[place] 1 osteotomy, bilateral sagittal split osteotomies with rigid fixation Anesthesia: GA with nasoendotracheal intubation EBL: 700cc IVF: 3100cc U/O: 1700cc Complications: none Condition: good canned Note- Null - Inpatient, MD Tejal - 04/14/2010 1012 EDT canned Note-Null - Inpatient, MD Tejal - 04/14/2010 1012 EDT documented in this encounter Plan of Treatment Not on filedocumented as of this encounter Visit Diagnoses Not on filedocumented in this encounter Administered Medications Inactive Administered Medications - up to 3 most recent administrations Medication Order MAR Action Action Date Dose Rate Site acetaminophen (CHILDREN'S TYLENOL) Given 04/16/2010 6:34 EDT 650 mg solution 650 mg 650 mg, oral, EVERY 4 HOURS PRN, Starting on Mon04/14/10 at 2220, Until Mon04/16/10 at 1403, Pain, Routine Given 04/15/2010 22:03 EDT 650 mg Given 04/15/2010 17:43 EDT 650 mg CEFAZolin (ANCEF) 1,000 mg in sodium chloride Given 8:00 EDT 1,000 mg 0.9 % 50 mL IVPB 1,000 mg, intravenous, Administer over 30 Minutes, EVERY 8 HOURS, 3 doses, First dose on Mon04/14/10 at 1815, Last dose on Mon04/15/10 at 0800, Routine Given 04/15/2010 0:00 EDT 1,000 mg Given 04/14/2010 18:15 EDT 1,000 mg CEFAZolin (ANCEF) syringe 1 g Given by Other 04/14/2010 13:10 EDT 1 g 1 g, intravenous, Administer over 10 Minutes, PRE-OP ONCE, 1 dose, On Mon04/14/10 at 0745, Routine dexaMETHasone (DECADRON) injection 10 mg Given 04/16/2010 6:00 EDT 10 mg 10 mg, intravenous, EVERY 6 HOURS, First dose on Mon04/14/10 at 1815, Until Discontinued, Routine Given 04/16/2010 0:00 EDT 10 mg Given 04/15/2010 18:00 EDT 10 mg dextrose 5 %-0.45 % sodium Rate Documented 04/14/2010 20:45 EDT 100 mL/hr chloride infusion at 100 mL/hr, intravenous, CONTINUOUS, Starting on Mon04/14/10 at 2045, Until Mon04/15/10 at 0915, Routine, On Unit Hydromorphone (DILAUDID) liquid 2 mg Given 04/16/2010 9:45 EDT 2 mg 2 mg, oral, EVERY 4 HOURS PRN, Starting on Mon04/15/10 at 1221, Until Mon04/16/10 at 1403, Pain, Routine Given 04/16/2010 6:35 EDT 2 mg Given 04/15/2010 23:38 EDT 2 mg HYDROmorphone 1 mg/ml (DILAUDID) SYSTEMS INTEGRATION ANALYST syringe, New Bag 04/14/20 18:32 EDT mL/hr 30 ml intravenous, CONTINUOUS, Starting on Mon04/14/10 at 1815, Until Mon04/15/10 at 0915, Intravenous, SYSTEMS INTEGRATION ANALYST, SYSTEMS INTEGRATION ANALYST Dose: 0.2 mg LOCKOUT Interval: 6 minutes ONE HOUR Dose Limit: 2.0 mg See PRN bolus orders for breakthrough pain., Routine lactated ringers (LR) infusion New Bag 04/14/2010 11:00 EDT 25 mL/hr at 25 mL/hr, intravenous, CONTINUOUS, Starting on Mon04/14/10 at 1100, Until Mon04/15/10 at 0915, Routine, Pre Op Day of Surgery lactated ringers (LR) infusion Rate Change 04/14/2010 18:34 EDT 75 mL/hr at 75 mL/hr, intravenous, CONTINUOUS, Starting on Mon04/14/10 at 1400, Until Mon04/14/10 at 2029, Routine, Recovery (only) oxycodone (ROXICODONE) solution 5-10 mg Given 04/15/2010 10:01 EDT 10 mg 5-10 mg, oral, EVERY 6 HOURS PRN, Starting on Mon04/15/10 at 0907, Until Mon04/15/10 at 1222, Pain, Routine sodium chloride 0.9 % flush 3 mL Given 04/16/2010 7:00 EDT 3 mL 3 mL, intravenous, EVERY 8 HOURS, First dose on Mon04/15/10 at 0945, Until Discontinued, Routine Given 04/16/2010 0:00 EDT 3 mL Given 04/15/2010 17:42 EDT 3 mL triamcinolone (KENALOG) 0.1 % ointment Given 04/15/2010 21:00 EDT topical (top), 3 TIMES DAILY, First dose on Mon04/14/10 at 2100, Until Discontinued Given 04/15/2010 13:25 EDT Given 04/15/2010 9:00 EDT documented in this encounter Historical Medications This list may reflect changes made after this encounter. Medication Sig Dispensed Refills Start Date End Date NONFORMULARY Take by mouth daily. 0 Sulsamethoxazole added in this encounter Active and Recently Administered Medications Times are shown in EDT. Scheduled Medication Order 04/14/2010 04/15/2010 04/16/2010 CEFAZolin (ANCEF) 1,000 mg in sodium chloride 0.9 % 50 mL IVPB (COMPLETED) 1815 (Given - Provider: Lynn Fraire RN) 0000 (Given - Provider: Jihan Muniz RN)0800 (Given - Provider: Madison Porter, NOEL) 1,000 mg, Intravenous, for 30 Minutes, E VERY 8 HOURS, 3 doses, First dose on Mon04/14/10 at 1815, Last dose on Mon04/15/10 at 0800 CEFAZolin (ANCEF) syringe 1 g (COMPLETED) 1310 (Given by Other - Provider: Alva Villalpando RN - Comment: given by chana preop) 1 g, Intravenous, for 10 Minutes, PRE-OP ONCE, 1 dose, Mon at 0745 dexaMETHasone (DECADRON) injection 10 mg (CANCELED) 18 15 (Given - Provider: Lynn Fraire RN) 0000 (Given - Provider: Jihan Muniz, NOEL)0600 (Given - Provider: Jihan Muniz RN)1200 (Given - Provider: Madison Porter RN)1800 (Given - Provider: Sharmila Grayson RN) 0000 (Given - Provider: Beatriz Goldstein, NOEL)0600 (Given - Provider: Beatriz Goldstein, NOEL) 10 mg, Intravenous, EVERY 6 HOURS, First dose on Mon04/14/10 at 1815, Until Discontinued sodium chloride 0.9 % flush 3 mL (CANCELED) 0945 (Given - Provider: Madison Porter RN)1202 (Given - Provider: Madison Porter RN)1742 (Given - Provider: Sharmila Grayson RN) 0000 (Given - Provider: Beatriz richard RN)0700 (Given - Provider: Beatriz Goldstein RN) 3 mL, Intravenous, EVERY 8 HOURS, First dose on Susan 04/15/10 at 0945, Until Discontinued triamcinolone (KENALOG) 0.1 % ointment 2100 (Hold - Pr ovider: Jihan Muniz RN - Reason: Other - Comment: hold until Rn informed of purpose of med. Pedi residents consulted and they are unaware of purpose and Dental Surg Resident paged but no response.) 0900 (Given - Provider: Madison Porter RN)1325 (Given - Provider: Sarahi Amaro)2100 (Given - Provider: Beatriz Goldstein RN) Topical, 3 TIMES DAILY, First dose on Mon04/14/10 at 2100, Until Discontinued Continuous Medication Order 04/14/2010 04/15/2010 04/16/2010 dextrose 5 %-0.45 % sodium chloride infusion (CANCELED ) 2044 (Rate Documented - Provider: Jihan Muniz RN) at 100 mL/hr, Intravenous, CONTINUOUS, S tarting Mon04/14/10 at 2045, Until Discontinued HYDROmorphone 1 mg/ml (DILAUDID) SYSTEMS INTEGRATION ANALYST syringe, 30 ml (C ANCELED) 1831 (New Bag - Provider: Lynn Fraire RN) Intravenous, CONTINUOUS, Starting 14/08 at 1815, Until Discontinued, Intravenous, SYSTEMS INTEGRATION ANALYST, SYSTEMS INTEGRATION ANALYST Dose: 0.2 mg LOCKOUT Interval: 6 minutes ONE HOUR Dose Limit: 2.0 mg See PRN bolus orders for breakthrough pain. lactated ringers (LR) infusion (CANCELED) 1100 (New Ba g - Provider: Kimberly Kay)1834 (Completed - Provider: Lynn Fraire, NOEL)2100 (Completed - Provider: Jihan Muniz RN) at 25 mL/hr, Intravenous, CONTINUOUS, St arting Mon04/14/10 at 1100, Until Discontinued lactated ringers (LR) infusion (CANCELED) 1834 (Rate C hange - Provider: Lynn Fraire RN) at 75 mL/hr, Intravenous, CONTINUOUS, St arting 04/14/10 at 1400, Until Discontinued PRN Medication Order 04/14/2010 04/15/2010 04/16/2010 acetaminophen (CHILDREN'S TYLENOL) solution 650 mg (CANCELED ) 1100 (Given - Provider: Madison Porter RN)1743 (Given - Provider: Sharmila Grayson, NOEL)2203 (Given - Provider: Beatriz Goldstein, NOEL) 0634 (Given - Provider: Beatriz Goldstein, NOEL) 650 mg, Oral, EVERY 4 HOURS PRN, Startin g 04/14/10 at 2220, Until Discontinued, Pain Hydromorphone (DILAUDID) liquid 2 mg 132 5 (Given - Provider: Sarahi Amaro)1743 (Given - Provider: Sharmila Grayson RN)2338 (Given - Provider: Beatriz Goldstein, NOEL) 0635 (Given - Provider: Beatriz richard RN)0945 (Given - Provider: Sarahi Amaro) 2 mg, Oral, EVERY 4 HOURS PRN, Starting Susan 04/15/10 at 1221, Until Discontinued, Pain oxycodone (ROXICODONE) solution 5-10 mg (CANCELED) 1001 (Given - Provider: Madison Porter RN) 5-10 mg, Oral, EVERY 6 HOURS PRN, Starti ng Susan 04/15/10 at 0907, Until Discontinued, Pain documented in this encounter Orders Medications Ordered That Might Not Have Count Last Ord ered Date First Ordered Date Been Administered acetaminophen (TYLENOL) 650 mg/20.3 mL 0 solution acetaminophen (TYLENOL) tablet 650 mg 1 04/14/2010 atropine 0.1 mg/mL 10 mL syringe 0.5 mg 04/14/20 10 dexaMETHasone (DECADRON) 10 mg in sodium 1 010 chloride 0.9 % 50 mL IVPB HYDROmorphone (PF) (DILAUDID) 1 mg/mL 04/14/2010 injection 0.5 mg naloxone (NARCAN) injection 0.2 mg 1 04/14/2010 ondansetron (PF) (ZOFRAN) injection 2-4 mg 2 04/14 Diet Count Last Ordered Date First Ordered Date DIET FULL LIQUID 1 04/15/2010 Nursing Count Last Ordered Date First Ordered Date DIET MESSAGE 2 04/15/2010 INSERT PERIPHERAL IV 1 04/14/[address] SEQUENTIAL COMPRESSION DEVICE 1 04/14/2010 VITAL SIGNS 1 04/14/2010 Admission Count Last Ordered Date First Ordered Date NOTIFY PPS OF DISCHARGE COMPLETE 1 04/16/2010 ADMIT TO INPATIENT 1 04/14/2010 ADMITTING CONDITION 1 04/14/2010 PPS NOTIFICATION OF PATIENT ARRIVAL ON 0 UNIT TEACHING SERVICE 1 04/14/2010 Discharge Count Last Ordered Date First Ordered Date DISCHARGE PATIENT 1 04/16/2010 documented in this encounter Care Teams Virtual Recruiter Relationship Specialty Start Date End Date Sabrina Ly MD PCP - General 10/13/09 [address] [place] [id number] documented as of this encounter
--- OUTSIDE RECORDS SUMMARY | 2022-06-10 00:05 | XMS_ITS | Encounter Summary ---
:1990 Author Organization [facility] Address [address] [place] [address] Care Team Providers Name Role Phone Unavailable Primary Care Provider Unavailable Reason for Visit Reason Comments Annual Exam Encounter Details Date Type Department Care Team Description 03/23/2020 Office Visit [facility] at Lizbet Carver Encount er for Radha Jones Day CNM gynecological [address] One Medical examination without [place], [place] [address] abnormal finding [id number] [place] [address] [phone] Social History Tobacco Use Types Packs/Day Years [...] Sign Reading Time Taken Comments Blood Pressure 110/78 03/23/2020 3:01 PM EDT Pulse 77 03/23/2020 3:01 PM EDT Temperature - - Respiratory Rate - - Oxygen Saturation 98% 03/23/2020 3:01 PM EDT Inhaled Oxygen Concentration - - Weight 103.9 kg (229 lb) 03/23/2020 3:01 PM EDT Height 175.3 cm (5' 9) 03/23/2020 3:01 PM EDT Body Mass Index 33.82 03/23/2020 3:01 PM EDT documented in this encounter Progress Notes Lizbet Carver, CARROLM - 03/23/2020 3:00 PM EDT Patient Name Lakesha Kulkarni Date of 1990 Primary Care Provider Sabrina Ly MD Regular Care Provider None Date of Visit 03/23/2020 3:10 PM Reason for Visit: Lakesha is a 29 y.o. premenopausal female who presents for an annual REVIEW ENGINEER exam. Moved here a year ago from [facility]. 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 Realized her pills had run out and she had not established care yet. Patient's last menstrual period was 03/21/2020 (exact date). Menstrual cycle every 28-30 days lasting 3 days. () No intermenstrual bleeding. () Sexually active, using OCPs for control for 1 years. () Denies post-coital bleeding or dyspareunia. () No history of STD's. () No new sexual partners. Is in a residential relationship Health maintenance: Self-breast exam: Never disc breast awareness Mammogram: Last PAP 2017 and normal . OB History Para Term AB Living 0 0 0 0 0 0 SAB TAB Ectopic Multiple Live Births 0 0 0 0 0 Past Medical History: Diagnosis Date ??? Acne No past surgical history on file. Family History Problem Relation Age of Onset ??? Hypertension Father ??? Hyperlipidemia Father ??? Bipolar Disorder Paternal Grandmother Social History Socioeconomic History ??? Marital status: Single Spouse name: Not on file ??? Number of children: Not on file ??? Years of education: Not on file ??? Highest education level: Not on file Occupational History ??? Not on file Social Needs ??? Financial resource strain: Not on file ??? Food insecurity Worry: Not on file Inability: Not on file ??? Transportation needs Medical: Not on file Non-medical: Not on file Tobacco Use ??? Smoking status: Never Smoker ??? Smokeless tobacco: Never Used Substance and Sexual Activity ??? Alcohol use: Yes Frequency: 2-4 times a month Drinks per session: 1 or 2 ??? Drug use: Not on file ??? Sexual activity: Not on file Lifestyle ??? Physical activity Days per week: Not on file Minutes per session: Not on file ??? Stress: Not on file Relationships ??? Social connections Talks on phone: Not on file Gets together: Not on file Attends rastafari service: Not on file Active member of club or organization: Not on file Attends meetings of clubs or organizations: Not on file Relationship status: Not on file ??? Intimate partner violence Fear of current or ex partner: Not on file Emotionally abused: Not on file Physically abused: Not on file Forced sexual activity: Not on file Other Topics Concern ??? Not on file Social History Narrative ??? Not on file Current Outpatient Medications on File Prior to Visit Medication Sig Dispense Refill ??? Lessina 0.1-20 mg-mcg Tablet Take 1 tablet by mouth daily. 84 tablet 0 ??? [DISCONTINUED] Miscellaneous Medical Supply Kit by [facility].(Non-Drug; Combo Route) route. Indications: control, do no specified what type No current facility-administered medications on file prior to visit. No Known Allergies ROS: Constitutional: No fevers, chills, weight loss or gain, fatigue. HEENT: No visual changes, hearing loss, epistaxis, or rhinorrhea. Cardio: No CP, palpitations, angina, HARRISON, SOB. Resp: No SOB, HARRISON, wheeze, cough, sputum production. Abdomen/GI: No abdominal pain, nausea, GERD, constipation, diarrhea, blood in stool. : No dysuria, abnormal discharge, lesions, itching, or irritation. Musculoskeletal: No changes in ROM. Skin: No rashes, discoloration, or significant changes. Psych:No sadness, depression, anxiety, suicidal ideation. Neuro: No seizures, BUNN, syncope, numbness or change in balance or senses x 5. PE: BP 110/78 (BP Location (NBP): Left arm, Patient Position: Sitting, BP Cuff Sizes: Large Adult (32-43cm)) Pulse 77 Ht 175.3 cm (5' 9) Wt 103.9 kg (229 lb) LMP 03/21/2020 (Exact Date) SpO2 98% BMI 33.82 kg/m?? Breasts - No dominant masses, nipple discharge, or retraction. Abdomen - SNT, no organomegaly Pelvic exam External Genitalia - No lesions, discharge, or erythema. Urethral meatus - BUS negative for induration and discharge Vagina - pink and rugated Cervix - pink without lesions or abnormal discharge Uterus - small, non-tender, mobile, AV Adnexa - non-tender, non-palpable Rectovaginal exam - deferred Assessment: Healthy 29 y.o. woman Establishing care Plan: ??? pap smear done ??? Contraception: considering switch to IUD, info given, has decided to proceed and will schedule. ??? RTC in 1 year for annual grain merchandiser exam ??? Preventative recommendations for this patient include: ??? Regular exercise ??? Healthy diet working on improvements since COvid 19 and being at home more. ??? Enc kegels documented in this encounter Plan of Treatment Not on filedocumented as of this encounter Procedures Procedure Name Priority Date/Time Associated Diagnosis Comme nts REVIEW ENGINEER CYTOLOGY Routine 03/23/2020 3:48 Results for this INTERPRETATION PM EDT procedure are in the results section. REVIEW ENGINEER CYTOLOGY FINAL Routine 03/23/2020 3:48 Result s for this REPORT PM EDT procedure are i n the results section. CYTOPATHOLOGY Routine 03/23/2020 3:48 Encounter for Results fo r this GYNECOLOGICAL PM EDT gynecological procedure are in examination without the resu lts abnormal finding section. documented in this encounter Results Nurse Practitioner Per Diem Cytology Final Report (03/23/2020 3:48 PM EDT) Component Value Ref Test Analysis Performed At [facility] Method Time Signature Nurse Practitioner Per Diem Cytology [id number] ? Location: [facility] Final Report [place] The signing pathologist has (i) examined the relevant preparation(s) for the [facility] specimen(s) and (ii) rendered or confirmed the diagnosis(es) . HOSPITAL LABORATORY . ? Nurse Practitioner Per Diem Final DIAGNOSIS Normal Negative for intraepithelial lesion or malignancy (NILM). For consensus guidelines for the management of c ervical cancer screening test results, please see: ?? http://www.asccp.org . Electronically signed by: ??Se TEMPLETON(ASCP)AureaVera Verified: ??04/03/2020 ?Medicaid Billing Specialist Performed at: ??-[facility] Dept. of Pathology, [place], [place] HPV RESULTS Not applicable (HPV testing either not indicated or not requested by clinician). STATEMENT OF ADEQUACY Specimen submitted is satisfactory. Endocervical component present. CLINICAL INFORMATION HPV Option: ?Reflex HPV CT/NG Option: ?No Preparation: ? Liquid based Pap Specimen Source: ? Cervical/Endocervical LMP: ? 03/20/20 Hysterectomy: ?No : ?No : ?No I.U.D.: ?No Pelvic Radiation: ?No Hist Abnl Pap/Biopsy: ?No Prior REVIEW ENGINEER Therapy: ? No Hist of HPV Vaccine: ? No ICD Diagnosis: ? Z12.4 Encounter for screening for malignant neoplasm of cervix Clinical Data, Significant Therapy and Clinical Impression ? ? : ?_ This Pap Test has been evalu ated with the assistance of the ThinPrep Pap Test Imaging System. Note: The Pap test is a screening test for cervical cancer with an inherent false-negative rate dependent upon several variables. For further information please contact the [facility] Laboratory. Reference: Maribel CANAS. Oim Architect of Pap Smear Results. In: Dasia RENNER, reuben Schulz. The Pap Smear. [place]: Jevon, 2002: 71-77. Specimen (Source) Anatomical Collection Method Collection Time Re ceived Time Location / / Volume Laterality 03/23/2020 3:48 PM EDT Resulting Agency Comment Spec In Lab / APD Lizbet Chetan Wen CNM PATHOLOGY/CYTOLOGY ORDERABLE S Performing Organization Address City/[facility]/ZIP Code Phon e Number [address] REVIEW ENGINEER Cytology Interpretation (03/23/2020 3:48 PM EDT) [facility] gist Method Time Signature Nurse Practitioner Per Diem Cytology [facility] LABORATORY Comment: Nurse Practitioner Per Diem Cytology Final Report Acces dhruv: [id number] Endocervical Component Present [facility] LABORATORY Specimen Anatomical Collection Method Collection Time Receive d Time (Source) Location / / Volume Laterality AP Specimen 03/23/2020 3:48 PM 0 9:39 EDT AM EDT Resulting Agency Comment Spec In Lab / APD Lizbet Carver CNM PATHOLOGY/CYTOLOGY ORDERABLE S Performing Organization Address [facility] [place] [address] Cytopathology Gynecological (03/23/2020 3:48 PM EDT) Specimen Anatomical Collection Method Collection Time Receive d Time (Source) Location / / Volume Laterality AP Specimen 03/23/2020 3:48 PM 0 9:29 EDT PM EDT Narrative [facility] LABORAT ORY - 03/23/2020 9:29 PM EDT Specimen requisition ordered. ??Separate Pathology report to follow Resulting Agency Comment Spec In Lab / APD Lizbet Carver CNM PATHOLOGY/CYTOLOGY ORDERABLE S Performing Organization Address City/[facility]/ZIP Code Phon e Number [address] documented in this encounter Visit Diagnoses Diagnosis Encounter for gynecological examination without abnormal finding Routine gynecological examination documented in this encounter
--- OUTSIDE RECORDS SUMMARY | 2022-06-10 00:05 | XMS_ITS | Encounter Summary ---
:1990 Author Organization [place] [address] Care Team Providers Name Role Phone Sabrina Ly MD Primary Care Provider Reason for Visit Reason Onset Date Comments Appointment 01/01/2020 Encounter Details Date Type Department Care Team Description 01/01/2020 Telephone [facility] at Lizbet Griffith CNM Appointment [facility] [place] [address] [place] [address] [phone] Social History Tobacco Use Types Packs/Day Years [...] Telephone Encounter - [place] Dawn LPN - 01/01/2020 2:37 PM EDT Called pt and verified that she is taking lessina 0.1-20mg-mcg one tablet culp. Pt. Aware that Lizbet is fine with 90day supply and she will call AND MAKE APPOINTMENT IN 90 DAYS. PT. THANKED ME FOR THE CALL BACK. Telephone Encounter - [place] Dawn LPN - 01/01/2020 1:33 PM EDT I have called pt and left message to call Office to verify OCP that she is on. I have also left message that I would fore mejia message to Lizbet Carver CNM and let her decide if she is comfortable Sending RX in. Pt. Is new to [facility]. OCP last recorded was [facility] Telephone Encounter - Elyse Araujo - 01/01/2020 12:32 PM EDT Lakesha called regarding appointment to [facility] care and for annual that is scheduled for tomorrow with Lizbet Carver CNM. Patient is on control and has been out for one week. She is okay with scheduling out except she does not have any control and no longer has a PCP who can prescribe an additional amount for her. Would like to know what she can do please call. documented in this encounter Plan of Treatment Not on filedocumented as of this encounter Visit Diagnoses Diagnosis Constipation, unspecified constipation t ype documented in this encounter Care Teams Power Transformer Repair Supervisor Relationship Specialty Start Date End Date Sabrina Ly MD PCP - General 09/07/10 02/14/20 [address] [place] [address] documented as of this encounter
--- OUTSIDE RECORDS SUMMARY | 2022-06-10 00:05 | XMS_ITS | Encounter Summary ---
:1990 [place] [address] Care Team Providers Name Role Phone None Primary Care Provider Unavailable Encounter Details Date Type Department Care Team Description 05/08/2020 Telephone [facility] at Lizbet Griffith, [facility] [place] [address] [place] [address] [phone] Social History Tobacco Use Types Packs/Day Years [...] this encounter Miscellaneous Notes Telephone Encounter - Matthias Torrez - 05/08/2020 3:32 PM EDT Opened error. documented in this encounter Plan of Treatment Not on filedocumented as of this encounter Visit Diagnoses Not on filedocumented in this encounter Care Teams Medical Unit Secretary Relationship Specialty Start Date End Date None PCP - General 03/27/20 None documented as of this encounter
--- NOTE | 2022-06-10 06:45 | DI.US_ITS ---
Exam(s) US OB PAM WEIGHT EXAM: US OB PAM WEIGHT CLINICAL HISTORY: size greater than dates,O26.843. TECHNIQUE: Transabdominal obstetrical ultrasound was performed. COMPARISON: US US OB 2-3 TRIMESTER from 02/11/2022 FINDINGS: There is a single viable intrauterine gestation with cardiac activity identified-133 bpm The fetus is presently in cephalic position . Amniotic fluid: There is a normal amount of amniotic fluid with an PAM of 12.01cm. Placental location: The placenta is anterior grade 2,with no evidence of placenta previa. Dating parameters place this at approximately 37 weeks and 3 days gestational age, implying JIMMY of June 28, 2022. BPD measures 37 weeks and 3 days HC measures 38 weeks and 2 days AC measures 37 weeks and 6 days FL measures 36 weeks and 1 day Estimated weight is 3207 gm-7 pounds 1 ounce Fetus is at the 79th percentile on the Hadlock scale. IMPRESSION:: Viable 3rd trimester gestation, as described above. JIMMY by ultrasound dating is 06/28/2022. DATA REPOSITORY:
== END ==
PROVIDERS: Visit Provider Advanced Practice Midwife
DX: O26.843 Uterine size-date discrepancy, third trimester (principal)
CPT/HCPCS: 76816

== ENCOUNTER 2022-06-10 19:00 | Outpatient (REF) | payer OTHER, SELFPAY ==
[2022-06-10 19:09] LABS: *AMPHETAMINES SCREEN URINE Negative (Negative); *BARBITURATES SCREEN URINE Negative (Negative); *BENZODIAZEPINES SCREEN URINE Negative (Negative); Cannabinoids THC Negative (Negative); Cocaine Screen,Urine Negative (Negative); METHADONE URINE SCREEN Negative (Negative); OPIATES URINE SCREEN Negative (Negative)
[2022-06-10 19:12] LABS: Tricyclic Antidepressants Negative (Negative)
[2022-06-16 12:22] LABS: Buprenorphine Negative ng/mL (Cutoff: 5.0); Norbuprenorphine Negative ng/mL (Cutoff: 2.5)
== END 2022-06-10 19:01 | disposition home or self-care (01) ==
LOC: LBN 19:00
PROVIDERS: Visit Provider Advanced Practice Midwife
DX: Z34.93 Encounter for supervision of normal pregnancy, unspecified, third trimester (principal); Z3A.36 36 weeks gestation of pregnancy; Z36.85 Encounter for antenatal screening for Streptococcus B
CPT/HCPCS: 80307; 87081

== ENCOUNTER 2022-06-24 11:53 | Outpatient (CLI) | payer OTHER, SELFPAY ==
[2022-06-24 12:10] VITALS: BP 121/78; PULSE 98; TEMP 36.9
[2022-06-24 12:14] VITALS: BP 121/78; PULSE 98
[2022-06-24 12:47] VITALS: BP 121/78; PULSE 98; TEMP 36.9
--- NOTE | 2022-06-24 12:47 | W.OBNST ---
Date of service: 06/24/22 Time of Service: 12:47 NST Evaluation Reason for NST Reasons for Nonstress Test: OTHER, SEE COMMENT Reason for NST Other: Elevated BP in office. Gestational Age Gestational Age in Weeks and Days: 38 Weeks and 3Days Test and Monitor Explained Test/Monitor Explained: Test Explained, Monitor Explained and Patient Verbalized Understanding Vital Signs Blood Pressure: 121/78 Pulse: 98 Temperature: 98.4 F NST Information Date on Monitor: 06/24/22 Time on Monitor: 11:58 Date off Monitor: 06/24/22 Time off Monitor: 12:41 Total Time on Monitor: 43 NST Interventions: PO Hydration Contraction Frequency: Irritability NST Evaluation Patient States Movement: Present FHR Baseline: 130 Variability: Moderate 6-25 bpm Accelerations: 15x15 Decelerations: None NST Results: Reactive Note NST Note NST Reviewed and Verified by: Bernice Stewart
== END 2022-06-24 12:45 | disposition home or self-care (01) ==
LOC: BCD 11:54 → OBS 12:00
PROVIDERS: Visit Provider Advanced Practice Midwife
DX: O26.893 Other specified pregnancy related conditions, third trimester (principal); R03.0 Elevated blood-pressure reading, without diagnosis of hypertension; Z3A.38 38 weeks gestation of pregnancy
CPT/HCPCS: 59025

== ENCOUNTER 2022-06-24 17:45 | Outpatient (REF) | payer OTHER, SELFPAY ==
[2022-06-24 21:09] LABS: COMMENT (LAB VIEW ONLY) 128.37 mg/dL; PROTEIN 26.6 mg/dL
== END 2022-06-24 17:46 | disposition home or self-care (01) ==
LOC: LBN 17:45
PROVIDERS: Visit Provider Advanced Practice Midwife
DX: R03.0 Elevated blood-pressure reading, without diagnosis of hypertension (principal)
CPT/HCPCS: 82565; 84156

== ENCOUNTER 2022-07-06 06:30 | Outpatient (CLI) | payer OTHER, SELFPAY ==
[2022-07-06 07:50] VITALS: BP 125/82; PULSE 81; TEMP 37.2
[2022-07-06 08:27] VITALS: BP 125/82; PULSE 81
--- NOTE | 2022-07-06 09:26 | W.OBNST ---
Date of service: 07/06/22 Time of Service: 09:26 NST Evaluation Reason for NST Reasons for Nonstress Test: OTHER, SEE COMMENT Reason for NST Other: R/O labor Gestational Age Gestational Age in Weeks and Days: 40 Weeks and 1Days Test and Monitor Explained Test/Monitor Explained: Test Explained, Monitor Explained and Patient Verbalized Understanding Vital Signs Blood Pressure: 125/82 Pulse: 81 Temperature: 99.0 F NST Information Date on Monitor: 07/06/22 Time on Monitor: 07:40 Date off Monitor: 07/06/22 Time off Monitor: 08:28 Total Time on Monitor: 48 NST Interventions: None NST Evaluation Patient States Movement: Present FHR Baseline: 1 Variability: Moderate 6-25 bpm Accelerations: 15x15 Decelerations: None NST Results: Reactive Note NST Note Note: Lakesha reports regular contractions at home. SVE by Kady Carlisle /2. admitted to observation for rule out labor. NST Reviewed and Verified by: Marie Sims
[2022-07-06 09:27] VITALS: BP 125/82; PULSE 81; TEMP 37.2
[2022-07-06] MEDS: diphenhydrAMINE 25 MG CAP 50 MG PO (10:29)
== END 2022-07-06 10:35 | disposition home or self-care (01) ==
LOC: BCD 06:31 → OBS 07:34 → BCD 07:36 → OBS 07:37
PROVIDERS: Visit Provider Advanced Practice Midwife
DX: O47.1 False labor at or after 37 completed weeks of gestation (principal); Z3A.40 40 weeks gestation of pregnancy
CPT/HCPCS: 59025; G0378

== ENCOUNTER 2022-07-06 17:00 | Outpatient (CLI) | payer OTHER, SELFPAY ==
--- NOTE | 2022-07-06 22:01 | W.PM.OBNL1 ---
Date of service: 07/06/22 Time of Service: 22:01 Pelvic Exam Dilation: 2 Effacement (%): 80 station: -1 Cervix Position: posterior Consistency: soft Contractions Monitor Mode: External Contraction Frequency(min): every 4 min Contraction Duration(sec): 60 Intensity: Moderate Fetus A Monitor: External (US) Heart Rate Baseline: 140 Presentation: Vertex Variability: Moderate (6-25 BPM) Categories: Category I FHR Rhythm: Regular Accelerations: 15 X 15 Decelerations: None Amniotic Membrane Status: Intact Assessment and Plan Assessment and plan (1) Spontaneous onset of labor: Status: Acute Assessment and plan: prodromal labor and ripening. Therapeutic rest offered. Radha is undecided at this time. Will adminster morphine and vistaril if Lakesha desires and will encourage rest.
== END 2022-07-06 17:01 | disposition home or self-care (01) ==
LOC: BCD 19:21
PROVIDERS: Visit Provider Advanced Practice Midwife

== ENCOUNTER 2022-07-06 19:46 | Inpatient (IN) | payer OTHER, SELFPAY ==
[2022-07-06] VITALS (15 sets, daily range): BP systolic 121–142; BP diastolic 80–95; PULSE 74–126; RESP 20–24; TEMP 36.7–36.8; O2SAT 97–99
--- NOTE | 2022-07-06 19:13 | W.PM.HP.N ---
Date of service: 07/06/22 Time of Service: 19:13 History of Present Illness History of Present Illness Chief Complaint: contractions Narrative: Lakesha was evaluated earlier in the day for uterine contractions. She took benadryl for sleep and returned home to await active labor. She returned with back pain and worsening contractions. Her cervix was unchanged from the exam earlier in the day. She ambulated and showered for 2 hours and her cervix is now. 2 cms/ 80 %/posterior/ -1 station. She was given the option of returning home and taking ambien for sleep or receiving therapeutic rest here at the hospital. Radha chose to return home. Signs of labor were reviewed and she was encouraged to return with strong regular contractions, SROM, bleeding more than bloody show. PFSH All Active Problems (Updated 06/24/22 @ 11:58 by Mee Silver LPN) Elevated blood pressure reading (Acute) Group B Streptococcus carrier, +RV culture, currently (Acute) Size of fetus inconsistent with dates in third trimester (Acute) BMI 35.0-35.9,adult (Acute) (Acute) Medical History (Updated 06/24/22 @ 11:58 by Mee Silver LPN) Dysmenorrhea (05/07/15) Family History (Updated 03/11/22 @ 16:13 by Marie Sims CNM) Father Hyperlipidemia Hypertension Paternal Grandfather Diabetes Social History (System 12/21/21 @ 12:50 by Dulce Marin) Smoking/Tobacco Use Status: Never Smoking risk assessment performed?: Yes History History 1 Para 0 Hx # Term Pregnancies 0 Multiple births 0 Hx # Pregnancies 0 Ectopic pregnancies 0 AB induced 0 Hx Number of Living Children 0 AB spontaneous 0 Meds Allergies and Home Medications Allergies Allergy/AdvReac Type Severity Reaction Status Date / Time No Known Allergies Allergy Verified 07/05/22 10:38 Home Medications Medication Instructions Recorded Confirmed Type [id number]-[id number] 400 mcg-om3 35 mg-dha 25 tab PO 12/06/21 07/01/22 History mg-epa 5 mg-fish oil chewable tablet aspirin 81 mg tablet,delayed 81 mg PO DAILY #60 tabs 12/31/21 07/01/22 Rx release ferrous sulfate 325 mg (65 mg 325 mg PO DAILY #60 tabs 06/10/22 07/01/22 Rx iron) tablet
--- NOTE | 2022-07-06 19:58 | W.PM.OBHPL1 ---
Date of service: 07/06/22 Time of Service: 19:58 Assessment and Plan Assessment and plan (1) Group B Streptococcus carrier, +RV culture, currently : Status: Acute Assessment and plan: Will start antibiotics when Lakesha is in active labor. (2) Spontaneous onset of labor: Status: Acute Assessment and plan: Admit to Center. Comfort measures. Covid- 19 test. Will administer morphine and vistaril for therapeutic rest if no evidence of active labor at 2200. OB-HPI Labor/Delivery History of Present Illness Reason for Visit: labor check Chief Complaint: Uterine Contractions. JIMMY Calculator Estimated Delivery Date Method Current WG Current Estimate 07/05/22 Ultrasound #1 40w 1d Other Estimates 06/21/22 LMP (Uncertain) 42w 1d Comments: Lakesha was evaluated earlier in the day for uterine contractions. She took benadryl for sleep and returned home to await active labor. She returned with back pain and worsening contractions. Her cervix was unchanged from the exam earlier in the day. She ambulated and showered for 2 hours and her cervix is now. 2 cms/ 80 %/posterior/ -1 station. She was given the option of returning home and taking ambien for sleep or receiving therapeutic rest here at the hospital. Radha chose to remain at the hospital and receive therapeutic rest and she is admitted to observation for this. History of Present Expected Delivery Route/Plan - CNM FOB/ - Adin Fernandes (first child) BB Dangelo Fernandes yes to circ GBS POSITIVE, plan IP PCN prophykaxis Only Adin for labor support, looking for unmedicated Specific Issues/Plan 1. BMI 35, early glucola 89, 28 weeks - 121 2. Low dose ASA for nulliparity & BMI >35, start @ 12 wks 3. PAP done 03/2020 [facility] at [facility] 4. Pt feels anxiety about : was >9 lbs, sisters & mom had difficult births & large babies 4a. Would like to attend in person classes and resources provided. 5. Desires cfDNA screen: result low prob x5 male, declined CF/SMA/AFP screens 6. Both pt and FOB are vaccinated, not boosted 7. US at 36 weeks, EFW 7lb 79% PAM 12.01 PFSH All Active Problems (Updated 07/06/22 @ 19:59 by Marie Sims CNM) Spontaneous onset of labor (Acute) Elevated blood pressure reading (Acute) Group B Streptococcus carrier, +RV culture, currently (Acute) Size of fetus inconsistent with dates in third trimester (Acute) BMI 35.0-35.9,adult (Acute) (Acute) Medical History (Updated 07/06/22 @ 19:59 by Marie Sims CNM) Dysmenorrhea (05/07/15) Family History (Updated 03/11/22 @ 16:13 by Marie Sims CNM) Father Hyperlipidemia Hypertension Paternal Grandfather Diabetes Social History (System 12/21/21 @ 12:50 by Dulce Marin) Smoking/Tobacco Use Status: Never Smoking risk assessment performed?: Yes History History 1 Para 0 Hx # Term Pregnancies 0 Multiple births 0 Hx # Pregnancies 0 Ectopic pregnancies 0 AB induced 0 Hx Number of Living Children 0 AB spontaneous 0 Meds Allergies and Home Medications Allergies Allergy/AdvReac Type Severity Reaction Status Date / Time No Known Allergies Allergy Verified 07/05/22 10:38 Home Medications Medication Instructions Recorded Confirmed Type [id number] 400 mcg-om3 35 mg-dha 25 tab PO 12/06/21 07/01/22 History mg-epa 5 mg-fish oil chewable tablet aspirin 81 mg tablet,delayed 81 mg PO DAILY #60 tabs 12/31/21 07/01/22 Rx release ferrous sulfate 325 mg (65 mg 325 mg PO DAILY #60 tabs 06/10/22 07/01/22 Rx iron) tablet Exam Detailed Labor and Delivery Exam Dilation: 2 Effacement (%): 80 station: -1 Cervix position: posterior Consistency: soft Reno Score: Cervical Points Exam 0 1 2 3 Dilation Closed 1-2cm 3-4 cm 5-6cm Effacement 0-30% 40-50% 60-70% 80% Consistency Firm Medium Soft Station -3 -2 -1,0 +1,+2 Position Posterior Mid Anterior Amniotic Membrane Status: Intact Monitor Mode: External Contraction Frequency(min): every 4 minutes Contraction Duration(sec): 50 Contraction Intensity: Moderate Fetus A Heart Rate Baseline: 150 Monitor Accelerations: 15 X 15 Monitor Decelerations: None Variability: Moderate (6-25 BPM) Presentation: Vertex Categories: Category I Risk Assessment Risk for Shoulder Dystocia Historical/Initial OB: POSITIVE FOR: Pre- BMI>30; NEGATIVE FOR: Pelvic Abnormality, Previous Shoulder Dystocia or Previous Macrosomia 40 Weeks: NEGATIVE FOR: EFW> 4500 gms, Maternal Weight Gain >40lb or Post Dates Counseling: primiparous status with potentially LGA fetus Delivery Plan @ 40 wks: spont labor, Risk for Pre-Eclampsia Date Initiated/Initials: to start at 12 weeks, jk Yes, if one or more: NEGATIVE FOR: Hx Pre-E/Gest HTN, Chronic HTN, Multiple Gestation, Pre-gestational DM, Renal Disease, Systemic Lupus or APA Syndrome Yes, if 2 or more: POSITIVE FOR: Nulliparity and BMI>30; NEGATIVE FOR: Age>= 35 yrs, >10yr btwn pregnancies, ethinicty, Mother/Sister w/ Pre-E or Previous IUGR Risk for Post- Hemorrhage Initial: NEGATIVE FOR: Multiple Gestation, Previous PPH, Known Clotting Deficiency, Grand Multiparity or Anticoagulation Counseled re: Active Management: Yes Risks Reviewed Risks Reviewed Upon Admission: Yes
[2022-07-06 20:35] LABS: HCT 38.5 % (36.0-46.0); HGB 12.2 g/dL (11.2-15.7); MCH 25.6 pg (27.0-33.0); MCHC 31.7 % (32.0-36.0); MCV 81 fL (80-95); MPV 9.9 fL (8.0-11.0); Platelet Count 268 10^3/uL (130-400); RBC 4.76 10^6/uL (3.93-5.22); RDW 14.4 % (11.7-14.6); RDW-SD 42.1 fL; WBC 18.06 10^3/uL (4.4-10.8)
[2022-07-06] MEDS: hydrOXYzine 25 MG/ML VIAL 50 MG IM (22:36)
[2022-07-06] MEDS: MORPHine 10 MG/ML VIAL IM (22:38)
[2022-07-07] VITALS (35 sets, daily range): BP systolic 112–150; BP diastolic 63–96; PULSE 73–141; RESP 16–20; TEMP 36.4–36.6; O2SAT 97–100
--- NOTE | 2022-07-07 08:40 | W.PM.OBNL1 ---
Date of service: 07/07/22 Time of Service: 08:40 Pelvic Exam Dilation: 4 Effacement (%): 90 station: +1 Cervix Position: mid Consistency: soft Contractions Monitor Mode: External Contraction Frequency(min): every 4 minutes Contraction Duration(sec): 60 Intensity: Moderate Assessment and Plan Assessment and plan (1) Spontaneous onset of labor: Status: Acute Assessment and plan: Comfort measures. Anticipate . Will start antibiotic prophylaxis for GBS. Lakesha hopes to use the tub for comfort Objective Abnormal lab results 07/06/22 Range/Units 20: WBC 18.06 H (4.4-10.8) 10^3/uL MCH 25.6 L (27.0-33.0) pg MCHC 31.7 L (32.0-36.0) % Temp Pulse Resp BP Pulse Ox 98.1 F 97 H 20 150/70 H 97 07/06/22 21:09 07/07/22 00:58 07/06/22 21:32 07/07/22 00:25 07/07/22 00:57 Laboratory Results WBC 18.06 10^3/uL (4.4-10.8) H 07/06/22 20: RBC 4.76 10^6/uL (3.93-5.22) 07/06/22 20: Hgb 12.2 g/dL (11.2-15.7) 07/06/22 20: Hct 38.5 % (36.0-46.0) 07/06/22 20: MCV 81 fL (80-95) 07/06/22 20: MCH 25.6 pg (27.0-33.0) L 07/06/22 20: MCHC 31.7 % (32.0-36.0) L 07/06/22 20: RDW 14.4 % (11.7-14.6) 07/06/22 20: Plt Count 268 10^3/uL (130-400) 07/06/22 20:26 MPV 9.9 fL (8.0-11.0) 07/06/22 20:26 Patient ABO/Rh O Positive 07/06/22 20: Antibody Screen NEGATIVE 07/06/22 20:26 Subjective Interval history since last seen: Lakesha slept well and awoke with contractions. She is ambulating for comfort. Results Hemoglobin/Hematocrit: Hgb 12.2 g/dL (11.2-15.7) 07/06/22 20:26 Hct 38.5 % (36.0-46.0) 07/06/22 20:26 Abnormal Lab Findings: Abnormal Labs 07/06/22 20:26 WBC 18.06 H MCH 25.6 L MCHC 31.7 L
[2022-07-07] MEDS: Penicillin G POT. 5,000,000 UNITS in Normal Saline 100 ML 200 UNITS IVPB (08:58)
[2022-07-07 10:11] LABS: Source Nasal/Nares
[2022-07-07 10:44] LABS: COVID-19 PCR Negative (Negative)
[2022-07-07] MEDS: Penicillin G POT. 3,000,000 UNITS in Normal Saline 50 ML 100 UNITS IVPB (12:56)
[2022-07-07] MEDS: Nalbuphine 10 MG/ML AMP SC (14:23)
--- NOTE | 2022-07-07 15:17 | NUR.NOTE ---
Nursing Note: Report given to Svetlana Jones RN.
[2022-07-07] MEDS: miSOPROStol 200 MCG TAB 400 MCG SL (17:25)
[2022-07-08 04:00] VITALS: BP 128/81; PULSE 112; RESP 17; TEMP 36.8
[2022-07-08 08:15] VITALS: BP 122/87; RESP 14; TEMP 37.1
[2022-07-08] MEDS: Ibuprofen 600 MG TAB PO ×2 (08:25→16:45)
[2022-07-08] MEDS: Acetaminophen 325 MG TAB 650 MG PO ×2 (08:25→16:45)
--- NOTE | 2022-07-08 11:26 | W.OBDELIVERY ---
Date of service: 07/08/22 Time of Service: 19:00 OB Labor/ Delivery Information Baby A Delivery Delivery Method: Spontaneaous Presentation: Vertex Cephalic Position: Vertex Vertex Position: Left Occipital Anterior Cord Description Comment: hypocoiled Amniotic Fluid: Clear Estimated Blood Loss: 500 Delivery Outcome: Liveborn Complications: none Transferred: Remains with Mother Note: Lakesha progressed to full dilation and began bearing down. She pushed well on hands and knees in the shower and on the floor mat. FHTs 120sduring first stage of labor. FHTs 120s by doppler in second stage. Second stage huddle was done. Spontaneous delivery of male delivered in KENNEDY position. Baby was placed in mother's arms and dried and stimulated. Spontaneous cry. Lakesha ambulated to the bed. Cord was clamped and cut by the baby's father. The placenta delivered spontaneously and appears to by intact with a three vessel cord. Pitocin 10 units IM was administered prior to delivery of the placenta. The perineum was inspected and a small perineal abrasion was repaired with one interrupted 4-0 vicryl suture under local anesthetic. There was heavy bleeding prior to the placenta delivery and cytotec 400 mcg was given orally. The baby did breastfeed. The fundus was firm with massage after the placenta was delivered. After delivery, Mother and baby and father of the baby were stable and bonding well in the delivery room and there were no complications. The baby's name is Dangelo. Providers Nurse Inspector Circuitry Negative: Marie Sims Nurse: Joselito Jones Nurse: Tamiko Noland Labor/Delivery Information Number of Babies in Womb: 1 Steroids Given: None Reason Steroids Not Administered: N/A Group Beta Strep: Positive Antibiotics Administered: Yes Blood Type: O+ Medication in Delivery: pitocin Shoulder Dystocia: No Stages of Labor Complete Dilatation Date: 07/07/22 Complete Dilatation Time: 16:00 ROM Baby A: 07/07/22 ROM Baby A: 12:00 ROM Total Time- Baby A: [id number] Infant Delivery Date-Baby A: 07/07/22 Delivery Time-Baby A: 17:19 Labor Stage 2 Duration: 1 hours and 19 minutes Placenta Delivery Date-Baby A: 07/07/22 Placenta Delivery Time-Baby A: 17:38 Labor-Stage 3 Duration: 19 minutes Placenta Cultured: No Placenta Status: Delivered Baby A Gender: Male Gestational Status: Term (39-41.6 wks) Gestational Age in Weeks/Days: 40 Weeks and 2 Days Score-1 Minute Interval(Baby A) Heart Rate-1 minute: 100 BPM or Greater Respiratory Effort- 1 minute: Spontaneous/Strong Cry Muscle Tone-1 minute: Active Movement Reflex Response-1 minute: Prompt Response Color-1 minute: Pallor or Cyanosis Total Score-1 minute: 8 Score-5 Minute Interval(Baby A) Heart Rate- 5 minute: 100 BPM or Greater Respiratory Effort-5 minute: Spontaneous/Strong Cry Muscle Tone-5 minute: Active Movement Reflex Response-5 minute: Prompt Response Color-5 minute: Pallor or Cyanosis Total Score- 5 minute: 8 Interventions Repair of Laceration Type: Perineal, Laceration Extension: First Degree. Sponge Count Correct: No Sponges Placed in Vagina, Sharp Count Correct: Yes.
--- NOTE | 2022-07-08 12:14 | W.PM.OBPNV1 ---
Date of service: 07/08/22 Time of Service: 12:15 Assessment and Plan Assessment and plan (1) Term of male : Status: Acute Assessment and plan: Routine post care. Will plan discharge tomorrow. Subjective Subjective Interval history: Lakesha feels well today. is going well. Patient's Mood: good baby status: Nursing well, Rooming in and Strong Bonding Observed feeding status: Exclusively breast feeding Exam Physical Exam Vital signs: Temp Pulse Resp BP Pulse Ox 98.8 F 112 H 14 122/87 97 07/08/22 08:15 07/08/22 04:00 07/08/22 08:15 07/08/22 08:15 07/07/22 21:30 Respiratory Exam Respiratory Exam: Normal Cardiovascular Exam Cardiovascular Exam: Normal Fundal Exam Fundus: Below Umbilicus Exam Comments: exam deferrred Extremities Exam Extremity Exam: Normal Skin Exam Skin Exam: Normal Psychiatric Exam Psychiatric Exam: Normal Results Hemoglobin/Hematocrit: Hgb 12.2 g/dL (11.2-15.7) 07/06/22 20:26 Hct 38.5 % (36.0-46.0) 07/06/22 20:26 Abnormal Lab Findings: Abnormal Labs 07/06/22 20:26 WBC 18.06 H MCH 25.6 L MCHC 31.7 L
[2022-07-08 17:18] VITALS: BP 121/85; PULSE 69; RESP 16; TEMP 36.8; O2SAT 98
[2022-07-09 02:00] VITALS: BP 106/67; PULSE 60; RESP 16; TEMP 36.6; O2SAT 98
[2022-07-09 06:41] LABS: HCT 30.5 % (36.0-46.0); HGB 9.6 g/dL (11.2-15.7); MCH 25.9 pg (27.0-33.0); MCHC 31.5 % (32.0-36.0); MCV 82 fL (80-95); MPV 10.2 fL (8.0-11.0); Platelet Count 270 10^3/uL (130-400); RBC 3.71 10^6/uL (3.93-5.22); RDW 14.3 % (11.7-14.6); RDW-SD 42.8 fL; WBC 15.33 10^3/uL (4.4-10.8)
[2022-07-09] MEDS: Ibuprofen 600 MG TAB PO (07:01)
[2022-07-09] MEDS: Acetaminophen 325 MG TAB 650 MG PO (07:01)
[2022-07-09 08:27] VITALS: BP 114/74; PULSE 90; RESP 16; TEMP 36.5
--- NOTE | 2022-07-09 10:20 | W.PM.OBDISCH ---
Date of service: 07/09/22 Time of Service: 10:20 DS: Diagnosis Discharge Diagnosis (1) Term of male : Status: Acute Asessment and Plan: Caring for baby independently. Pain is managed well with oral analgesics. Voiding without difficulty. well. A - stable mother and baby , Post day 2 P - Discharge to home today. Routine post instructions. TDAP will be administered. Circumcision planned for later in the week. [facility] Discharge Plan Disposition Patient Disposition: HOME Condition: Good Discharge Details Reason For Visit: Prodromal Labor Admit Date/Time: 07/07/22 08:30 Admit Provider: Marie Sims Attending Provider: Marie Sims Primary Care Provider: Sabrina Ly Home Meds and New Rx's Prescriptions: No Action [id number] oil 400 mcg-35 mg -25 mg-5 mg tablet,chewable 1 tab PO 1XD aspirin 81 mg tablet,delayed release (DR/EC) 81 mg PO DAILY Qty: 60 4RF Rx Instructions: 1 tab daily and 2 tabs every other day ferrous sulfate 325 mg (65 mg iron) tablet 325 mg PO DAILY Qty: 60 4RF Discharge Instructions Stand Alone Forms: BC Instructions, BC Post Vaginal Deliver Activity:: Activity as Tolerated Equipment/Supplies:: No Equipment Needed Diet:: As Tolerated Discharge Orders Discharge Orders: Discharge Order (Routine); Ordered 07/09/22 Ordered By: Marie Sims OB:DS Summary Summary Vaginal Delivery Method: Spontaneaous Laceration Description: Perineal Laceration Extension: First Degree Contraception Discussed Contraception Discussed: Yes Contraceptive Plan: IUD, Infant Gender-Baby A: Male Status at Discharge Functional status at discharge: independent ambulation Overall status at discharge: patient is back to baseline Mental Status: mental status grossly normal Speech and Movement: speech and movement normal Mood: congruent mood Affect: normal affect Exam Physical Exam Vital signs: Temp Pulse Resp BP Pulse Ox 97.7 F 90 16 114/74 98 07/09/22 08:27 07/09/22 08:27 07/09/22 08:27 07/09/22 08:27 07/09/22 02:00 Respiratory Exam Respiratory Exam: Normal Cardiovascular Exam Cardiovascular Exam: Normal Fundal Exam Fundus: Below Umbilicus Rectal Exam Rectal Exam: Normal Exam Perineum: Intact External: Present normal urethra appearance Comments: one perineal suture Extremities Exam Extremity Exam: Normal Skin Exam Skin Exam: Normal Psychiatric Exam Psychiatric Exam: Normal PFSH All Active Problems (Updated 07/09/22 @ 10:23 by Marie Sims CNM) Term of male (Acute) BMI 35.0-35.9,adult (Acute) Medical History (Updated 07/09/22 @ 10:23 by Marie Sims CNM) Dysmenorrhea (05/07/15) Family History (Updated 03/11/22 @ 16:13 by Marie Sims CNM) Father Hyperlipidemia Hypertension Paternal Grandfather Diabetes Social History (System 12/21/21 @ 12:50 by Dulce Marin) Smoking/Tobacco Use Status: Never Smoking risk assessment performed?: Yes History History 1 Para 0 Hx # Term Pregnancies 0 Multiple births 0 Hx # Pregnancies 0 Ectopic pregnancies 0 AB induced 0 Hx Number of Living Children 0 AB spontaneous 0 DS: Data Vitals/I&O Vitals and I&O: Vital Signs Temperature 97.7 F 07/09/22 08:27 Pulse 90 07/09/22 08:27 Pulse Rhythm Regular 07/09/22 08:27 Respiratory Rate 16 07/09/22 08:27 Respiratory Depth Normal 07/07/22 14:47 Blood Pressure 114/74 07/09/22 08:27 Blood Pressure Mean 87 07/09/22 08:27 Pulse Oximetry 98 07/09/22 02:00 Oxygen Delivery Method Room Air 07/06/22 20:30 Oxygen Flow Rate 0 07/06/22 20:30 Pain Level 0 07/09/22 08:27 Comment 07/09/22 02:00 Intake & Output 07/08/22 07/08/22 07/09/22 11:59 23:59 11:59 Intake Total 1300 / 1300 Output Total 1200 / 1200 Balance 100 / 100 Intake: Oral 1300 / 1300 Output: Urine 1200 / 1200 Other: Urine Color Yellow Data Completed and Pending Labs on day of discharge: Labs from last 24 hours 07/09/22 06:24 WBC 15.33 H RBC 3.71 L Hgb 9.6 L D Hct 30.5 L MCV 82 MCH 25.9 L MCHC 31.5 L RDW 14.3 Plt Count 270 MPV 10.2
== END 2022-07-09 11:20 | disposition home or self-care (01) | DRG 807 ==
PROVIDERS: Admitting Provider Advanced Practice Midwife; Visit Provider Advanced Practice Midwife
DX: O99.824 Streptococcus B carrier state complicating childbirth (principal); Z37.0 Single live birth; Z3A.40 40 weeks gestation of pregnancy; O70.0 First degree perineal laceration during delivery; O67.8 Other intrapartum hemorrhage
CPT/HCPCS: 36415; 85027; 86850; 86900; 86901; 87635; J2270; J2540; J3410; J3490

== ENCOUNTER 2023-04-25 13:59 | Outpatient (REF) | payer OTHER, SELFPAY ==
--- NOTE | 2023-04-25 13:15 | PAPFT_PTH ---
PATIENT: Lakesha Mike LOC: [facility] U#:[id number] AGE/SX: 32/F ROOM: RE04/25/[address]: Deena Linn NP : 1990 BED: DIS: 04/25/2023 SPEC #: [id number] RECD: 04/25/23 14:26 STATUS: LEE ANN RECarol #: [id number] JUAN: 04/25/23 13:[address]: Deena Linn NP DEPT: [facility] Cytology RECD BY: Daniella Garner ENTERED: 04/25/23 14:26 SP TYPE: PAPFT OTHR DR: Berniec Stewart CNM Tissues: 1 - CX/ENDOCX FOR PAP SMEARS Procedures: PAP THIN PREP/UVM Screening HPV DNA PROBE Comments: [id number]
== END 2023-04-25 14:00 | disposition home or self-care (01) ==
LOC: LBN 13:59
PROVIDERS: PCP Advanced Practice Midwife; Visit Provider Nurse Practitioner Women's Health
DX: Z12.4 Encounter for screening for malignant neoplasm of cervix (principal); Z11.51 Encounter for screening for human papillomavirus (HPV)
CPT/HCPCS: 88142; 87624

== ENCOUNTER → 2023-09-04 03:12 | Outpatient (CLI) | payer OTHER, SELFPAY ==
--- NOTE | 2023-09-04 08:00 | DI.RAD_ITS ---
Exam(s) XR FOOT RT COMPLETE EXAM: XR FOOT RT COMPLETE CLINICAL HISTORY: Rt Heel pain, RT FOOT PAIN, M79.671. TECHNIQUE: 2D digital imaging was performed. Three views. COMPARISON: No exams were available for comparison FINDINGS: BONES: No acute fracture is present. No bony destructive lesion is seen. Small plantar calcaneal spu r. JOINTS: No dislocation present. No significant degenerative changes. SOFT TISSUE: Normal. IMPRESSION: small heel spur. DATA REPOSITORY: RADIATION DOSE DELIVERED:
== END ==
PROVIDERS: PCP Advanced Practice Midwife; Visit Provider Podiatrist
DX: M79.671 Pain in right foot (principal)
CPT/HCPCS: 73630

== ENCOUNTER 2024-03-22 05:17 | Outpatient (CLI) | payer OTHER, SELFPAY ==
[2024-03-22 15:34] LABS: Panorama Kit Sent via Fed Ex
[2024-03-22 15:37] LABS: Abs Immature Grans 0.04 10^3/uL (0.0-0.06); Absolute Basophil Count 0.03 10^3/uL (0.0-0.2); Absolute Eosinophil Count 0.15 10^3/uL (0.0-0.7); Absolute Lymphocyte Count 1.97 10^3/uL (1.2-3.4); Absolute Monocyte Count 0.57 10^3/uL (0.1-0.8); Absolute Neutrophil Count 7.03 10^3/uL (1.2-6.7); Basophils % 0.3 %; Eosinophils % 1.5 %; HCT 37.9 % (36.0-46.0); HGB 12.7 g/dL (11.2-15.7); Immature Grans % 0.4 %; Lymphocytes % 20.1 %; MCH 27.3 pg (27.0-33.0); MCHC 33.5 % (32.0-36.0); MCV 82 fL (80-95); Monocytes % 5.8 %; Neutrophils % 71.9 %; Platelet Count 272 10^3/uL (130-400); RBC 4.65 10^6/uL (3.93-5.22); RDW 13.1 % (11.7-14.6); RDW-SD 38.8 fL; WBC 9.79 10^3/uL (4.4-10.8)
[2024-03-22 15:49] LABS: Glucose,1 Hr (Glucola) 114 mg/dL (80-140)
[2024-03-25 10:08] LABS: Hepatitis C Ab w Rflx HCV PCR Negative (Negative)
[2024-03-25 10:12] LABS: HIV-1/2 Ag & Ab Screen Negative (Negative)
[2024-03-25 10:33] LABS: Hepatitis B Surface Ag Negative (Negative)
[2024-03-25 15:27] LABS: Varicella IgG Antibody Positive (See Note)
[2024-03-25 15:29] LABS: Rubella IgG Ab (UVM) Positive (See Note)
[2024-03-27 13:00] LABS: Syphilis IgG w/Reflex Nonreactive (Nonreactive)
== END 2024-03-22 05:18 | disposition home or self-care (01) ==
LOC: LBO 05:17
PROVIDERS: Advanced Practice Midwife; PCP Nurse Practitioner Family; Visit Provider Advanced Practice Midwife
DX: Z34.91 Encounter for supervision of normal pregnancy, unspecified, first trimester (principal); Z3A.12 12 weeks gestation of pregnancy
CPT/HCPCS: 36415; 82950; 86787; 86803; 86850; 86900; 86901; 87340; 87389; 85025; 86762; 86780

== ENCOUNTER 2024-03-22 14:37 | Outpatient (REF) | payer OTHER, SELFPAY ==
[2024-03-23 13:27] LABS: Chlamydia Result Negative (Negative); GC Result Negative (Negative)
== END 2024-03-22 14:38 | disposition home or self-care (01) ==
LOC: LBN 14:37
PROVIDERS: PCP Nurse Practitioner Family; Visit Provider Advanced Practice Midwife
DX: Z34.90 Encounter for supervision of normal pregnancy, unspecified, unspecified trimester (principal); B96.89 Other specified bacterial agents as the cause of diseases classified elsewhere
CPT/HCPCS: 87491; 87591; 87086

== ENCOUNTER 2024-07-12 02:40 | Outpatient (CLI) | payer OTHER, SELFPAY ==
[2024-07-12 10:54] LABS: HCT 35.4 % (36.0-46.0); HGB 11.7 g/dL (11.2-15.7); MCH 26.8 pg (27.0-33.0); MCHC 33.1 % (32.0-36.0); MCV 81 fL (80-95); MPV 9.9 fL (8.0-11.0); Platelet Count 259 10^3/uL (130-400); RBC 4.36 10^6/uL (3.93-5.22); RDW 13.3 % (11.7-14.6); RDW-SD 39.4 fL; WBC 13.02 10^3/uL (4.4-10.8)
[2024-07-12 11:00] LABS: Glucose,1 Hr (Glucola) 129 mg/dL (80-140)
== END 2024-07-12 02:41 | disposition home or self-care (01) ==
LOC: LBO 02:41
PROVIDERS: PCP Nurse Practitioner Family; Visit Provider Advanced Practice Midwife
DX: Z34.93 Encounter for supervision of normal pregnancy, unspecified, third trimester (principal)
CPT/HCPCS: 36415; 82950; 85027

== ENCOUNTER 2024-09-06 09:38 | Outpatient (REF) | payer OTHER, SELFPAY | END 2024-09-06 09:39 | disposition home or self-care (01) | LOC: LBN 09:38 | PROVIDERS: PCP Nurse Practitioner Family; Visit Provider Advanced Practice Midwife | DX: Z34.93 Encounter for supervision of normal pregnancy, unspecified, third trimester (principal) | CPT/HCPCS: 87081 ==

== ENCOUNTER 2024-09-29 17:17 | Inpatient (IN) | payer OTHER, SELFPAY ==
[2024-09-29 16:41] VITALS: BP 131/80; PULSE 96; RESP 16; TEMP 36.8
[2024-09-29 16:48] VITALS: BP 131/80; PULSE 96
[2024-09-29 16:50] VITALS: BP 131/80; PULSE 96; RESP 16; TEMP 36.8
--- NOTE | 2024-09-29 17:20 | HPE_ITS ---
Date of service: 09/29/24 Time of Service: 17:20 Assessment and Plan Assessment and plan (1) Premature rupture of membranes (PROM) affecting second : Status: Acute Assessment and plan: A: 34 yo @ 39+2 wks, PROM confirmed, latent phase labor Low risk multipara, low risk for SD or PPH, favorable cvx exam GBS+ at 36 wks, category 1 tracing, afebrile and normotensive on arrival P: Admit to BC, CBC and T&S, start PCN prophyaxis for GBS+ & PROM Discussed recommendations for pitocin induction, pt declines at this time Pt is hopeful for spontaneous labor tonight Pt consents to induction in the morning if no labor (2) Group B Streptococcus carrier, antepartum: Status: Acute Assessment and plan: Pt consents to PCN prophylaxis while waiting for onset of labor OB-HPI Labor/Delivery History of Present Illness Reason for Visit: PROM at term Chief Complaint: Suspected Rupture of Membranes (water began leaking from vagina at 1300 while at the nail salon, has continued to trickle throughout the afternoon. Pt noted slight blood tinge to mucous one time, no nausea or vomiting, no diarrhea, fluid appeared clear.) , Associated Signs and Symptoms of Suspected ROM: water leaking from vagina. JIMMY Calculator Estimated Delivery Date Method Current WG Current Estimate 10/04/24 LMP (Certain) 39w 2d Other Estimates 10/08/24 Ultrasound #1 38w 5d History of Present Expected Delivery Route/Plan - CNM FOB/ - Adin Fernandes (2nd child w/pt) BB yes to circ- [place] Unmedicated , prefers to deliver H&K on floor or standing GBS POSITIVE, PCN prophylaxis in labor Specific Issues/Plan 1. BMI 36 - early JEZ=197, 28 wk glucola = 124 2. CfDNA- low risk male, CF/SMA & AFP declined 3. 5-Ps screen neg Assessment: History Reviewed & Current Review of Systems Narrative: ROS noncontributory other than HPI PFSH All Active Problems (Updated 09/29/24 @ 17:27 by Bernice Stewart) Group B Streptococcus carrier, antepartum (Acute) Premature rupture of membranes (PROM) affecting second (Acute) (Acute) BMI 35.0-35.9,adult (Acute) Medical History (Updated 09/29/24 @ 17:27 by Bernice Stewart) Missed menses Corns and callosities Pain in left foot Achilles tendinitis of left lower extremity Contracture of left Achilles tendon Dysmenorrhea (05/07/15) Family History Father Hyperlipidemia Hypertension Paternal Grandfather Diabetes Social History Smoking/Tobacco Use Status: Never Second Hand Exposure: No Smoking risk assessment performed?: Yes Alcohol Intake: current Drug use: Never Substance use type: does not use Sexually active: Yes Do you think of yourself as: straight/heterosexual Current gender identity: female What is your relationship status?: Panel score (0-1 are the most socially isolated patients): 1 What type of physical activity do you participate in: regular exercise Duration: 15-30 minutes/day Frequency: 5-6 times per week Seatbelt use: always Drive intox or ride w/intox skidder driver: No Do you feel safe at home: Yes Do you feel safe in your relationship?: Yes Female Reproductive History Menstrual control method: progestin IUCD History History 2 Para 1 Hx # Term Pregnancies 1 Multiple births 0 Hx # Pregnancies 0 Ectopic pregnancies 0 AB induced 0 Hx Number of Living Children 1 AB spontaneous 0 Past Pregnancies Del. Date GA/Weeks # Preg Succ Route Wgt Sex Labor Lgth Anesth esia Location [facility] 07/07/22 40 No Yes vaginal 8 lb 13 oz Male 4 hour active phase GIGI [facility] Delivery Date: 07/07/22 Last Updated by: Marie Sims CNM AROM & nitrous, prodromal labor and therapeutic rest [facility] All[facility]ies and Home Medications Allergies Allergy/AdvReac Type Severity Reaction Status Date / Time No Known Allergies Allergy Verified 09/27/24 15:36 Home Medications ?Medication ?Instructions ?Recorded ?Confirmed ?Type vits no.126-ferrous fum tab PO DAILY 02/07/24 09/27/24 History 28 mg iron-folic acid 800 mcg tablet (Classic ) Exam Physical Exam Vital signs: Temp Pulse Resp BP 98.2 F 96 H 16 131/80 09/29/24 16:41 09/29/24 16:48 09/29/24 16:41 09/29/24 16:48 Vital Signs Reviewed: Yes Constitutional Constitutional: no acute distress, average body habitus and cooperative Detailed Labor and Delivery Exam Dilation: 2 Effacement (%): 90 station: -1 Cervix position: anterior Consistency: firm AMBROSIO Score(Cervical Ripeness Score): 8 Amniotic Membrane Status: Ruptured Rupture Method: Spontaneous Nitrazine: Positive Ferning: Present Contraction Frequency(min): irreg, infrequent Contraction Intensity: Mild Fetus A Heart Rate Baseline: 140 Monitor Accelerations: Present Monitor Decelerations: None Variability: Moderate (6-25 BPM) Categories: Category I Est. Weight: 8 lb 2.514 oz Est. Weight: 3700 gms Date of Membrane Rupture: 09/29/24 Time of Membrane Rupture: 11:00 HEENT Exam HEENT Exam: Normal Neck Exam Neck Exam: Normal Chest/Brest/Axilla Exam Chest Exam: Normal Breast Exam Breast Exam: Not Done Respiratory Exam Respiratory Exam: Normal Cardiovascular Exam Cardiovascular Exam: Normal Abdominal Exam Abdominal Exam: Normal (Gravid, nontender) Rectal Exam Rectal Exam: Normal Exam Exam: Normal Extremities Exam Extremities Exam: Normal Back/Spine/Pelvis Exam Back Exam: Normal Pelvis Adequate: Yes (proven to 13) Skin Exam Skin Exam: Normal Neurological Exam Neurological Exam: Normal Psychiatric Exam Psychiatric Exam: Normal Results Results Group Beta Strep: Positive Blood Type: O+ Rubella Status: Immune Varicella Immunity: Immune Risk Assessment Risk for Shoulder Dystocia Historical/Initial OB: POSITIVE FOR: Pre- BMI>30; NEGATIVE FOR: Pelvic Abnormality, Previous Shoulder Dystocia or Previous Macrosomia 36 Weeks: NEGATIVE FOR: Current Gestational DM, EFW>4500gms or Maternal Weight Gain>40lbs Increased Risk?: No Delivery Plan @ 36wks: Delivery Plan @ 40 wks: Risk for Pre-Eclampsia Daily Dose ASA Indicated: No Yes, if one or more: NEGATIVE FOR: Hx Pre-E/Gest HTN, Chronic HTN, Multiple Gestation, Pre-gestational DM, Renal Disease, Systemic Lupus or APA Syndrome Yes, if 2 or more: POSITIVE FOR: BMI>30; NEGATIVE FOR: Nulliparity, Age>= 35 yrs, >10yr btwn pregnancies, ethinicty, Mother/Sister w/ Pre-E or Previous IUGR Risk for Post- Hemorrhage Initial: NEGATIVE FOR: Multiple Gestation, Previous PPH, Known Clotting Deficiency, Grand Multiparity or Anticoagulation 36 Weeks: NEGATIVE FOR: Anemia, hgb<10, Low platelets(thrombocytopenia), Gestational HTN or Pre-E, Polyhydraminios or EFW>4500gms At Risk?: No Counseled re: Active Management: Yes Risks Reviewed Risks Reviewed Upon Admission: Yes
[2024-09-29] MEDS: Normal Saline 100 ML 200 ML (17:50)
[2024-09-29 17:54] VITALS: BP 131/80; PULSE 96; RESP 16; TEMP 36.8
[2024-09-29 17:58] LABS: HCT 36.3 % (36.0-46.0); HGB 11.8 g/dL (11.2-15.7); MCH 25.9 pg (27.0-33.0); MCHC 32.5 % (32.0-36.0); MCV 80 fL (80-95); MPV 10.2 fL (8.0-11.0); Platelet Count 259 10^3/uL (130-400); RBC 4.56 10^6/uL (3.93-5.22); RDW 13.9 % (11.7-14.6); RDW-SD 39.9 fL; WBC 12.65 10^3/uL (4.4-10.8)
[2024-09-29 21:37] VITALS: BP 132/89; PULSE 89
[2024-09-29 21:39] VITALS: BP 123/84; PULSE 87; TEMP 36.7
[2024-09-29] MEDS: Penicillin G POT. 3,000,000 UNITS in Normal Saline 50 ML 100 UNITS IVPB (21:40)
[2024-09-29] MEDS: Normal Saline Flush 10 ML SYR IVP (21:41)
[2024-09-29] MEDS: Zolpidem 10 MG TAB PO (23:56)
[2024-09-30] VITALS (29 sets, daily range): BP systolic 113–156; BP diastolic 69–93; PULSE 73–135; RESP 18–20; TEMP 36.6–37; O2SAT 98–100
[2024-09-30] MEDS: Penicillin G POT. 3,000,000 UNITS in Normal Saline 50 ML 100 UNITS IVPB ×2 (02:14→05:35)
[2024-09-30] MEDS: Normal Saline Flush 10 ML SYR IVP ×2 (05:36→11:15)
--- NOTE | 2024-09-30 06:04 | W.PM.OBNL1 ---
Date of service: 09/30/24 Time of Service: 06:39 Pelvic Exam Dilation: 5.5 Effacement (%): 90 station: -1 Cervix Position: anterior Consistency: soft Contractions Monitor Mode: Palpation Contraction Frequency(min): q3-4 Intensity: Moderate Fetus A Monitor: External (US) Heart Rate Baseline: 140 Variability: Moderate (6-25 BPM) Categories: Category I Accelerations: Present Decelerations: None Amniotic Membrane Status: Ruptured Assessment and Plan Assessment and plan (1) Premature rupture of membranes (PROM) affecting second : Status: Acute Assessment and plan: A: Multipara entering active labor 4th dose of PCN infused IV reassuring FHT by intermittent auscultation P: Comfort measures as requested by pt Narcotic analgesia and epidural anesthesia discussed Anticipate Objective Vital Signs Reviewed: Yes Objective Narrative Objective Narrative: vital signs are stable, FOB with pt for support, pt coping well with contractions which are painful in her low back reporting increasing pelvic pressure with contractions IV access established, receiving PCN prophylaxis q4 hrs Subjective Interval history since last seen: Contractions became increasingly painful since 0200, has been using nitrous to good effect, also moving about the room and showering, using floor mat and physioball.
--- NOTE | 2024-09-30 06:43 | W.OBNST ---
Date of service: 09/29/24 Time of Service: 18:00 NST Evaluation Reason for NST Reasons for Nonstress Test: OTHER, SEE COMMENT Reason for NST Other: ROM Gestational Age Gestational Age in Weeks and Days: 39 Weeks and 2Days Test and Monitor Explained Test/Monitor Explained: Test Explained Vital Signs Blood Pressure: 131/80 Pulse: 96 Temperature: 98.2 F NST Information Date on Monitor: 09/29/24 Time on Monitor: 16:45 Date off Monitor: 09/29/24 Time off Monitor: 17:06 Total Time on Monitor: 21 NST Interventions: PO Hydration Contraction Frequency: irregular NST Evaluation Patient States Movement: Present FHR Baseline: 150 Variability: Moderate 6-25 bpm Accelerations: 15x15 Decelerations: None NST Results: Reactive Note Ultrasound Done: N/A. NST Note Note: PROM confirmed, will admit for GBS prophylaxis, await active labor NST Reviewed and Verified by: Bernice Stewart
[2024-09-30] MEDS: Oxytocin 10 UNITS/ML VIAL IM (07:46)
[2024-09-30] MEDS: Benzocaine 20% 60 ML CAN (07:55)
[2024-09-30] MEDS: miSOPROStol 200 MCG TAB 600 MCG SL (08:04)
[2024-09-30] MEDS: Oxytocin/Normal Saline 30 UNIT/500 ML BAG 95 UNITS IV (08:14)
--- NOTE | 2024-09-30 08:21 | W.OBDELIVERY ---
OB Labor/ Delivery Information Providers Nurse Log Data Technician: Bernice Stewart Nurse: Nadiya Hobson Labor/Delivery Information Number of Babies in Womb: 1 Steroids Given: None Reason Steroids Not Administered: N/A Group Beta Strep: Positive Antibiotics Administered: Yes Rubella Status: Immune Blood Type: O+ Varicella Immunity: Immune Stages of Labor Complete Dilatation Date: 09/30/24 ROM Baby A: 09/29/24 ROM Baby A: 11:00
[2024-09-30] MEDS: Ibuprofen 600 MG TAB PO ×2 (08:35→15:40)
[2024-09-30] MEDS: Hamamelis Leaf/Glycerin 100 EACH BOX PR (08:35)
[2024-09-30] MEDS: Dibucaine 1% 28 GM TUBE TP (08:35)
[2024-09-30] MEDS: Acetaminophen 325 MG TAB 650 MG PO ×2 (08:35→15:39)
--- NOTE | 2024-09-30 08:35 | W.OBDELIVERY ---
Date of service: 09/30/24 Time of Service: 08:30 OB Labor/ Delivery Information Baby A Delivery Delivery Method: Spontaneaous Presentation: Cephalic Cephalic Position: Vertex Vertex Position: Left Occipital Anterior Cord Description-Baby A: Nuchal Cord (loose, delivered through loop) Amniotic Fluid: Clear Estimated Blood Loss: 800 QBL Delivery Outcome: Liveborn Infant Transferred: Remains with Mother Note: Discussed with pt options for pain management with cvx exam at 5-6 cm, pt decided she wished to continue unmedicated. She ambulated around the room and soon began pushing involuntarily. FHT's remained reassuring with doppler checks, 2nd stage huddle was completed, pt eventually settled in kneeling position on the floor at the side of the bed, accomplished of a vigorous male infant, loose nuchal cord noted and infant delivered through the cord loop, stim and bulb suction accomplished with on dry blankets then handed to mother's arms. Pt assisted into bed while holding the baby, IV access was lost after the 4th PCN infusion so pitocin IM 10 units given, cord clamped and cut by FOB, cord blood collected, Marcelino placenta delivered intact with 3VC accompanied initially by brisk bleeding which slowed with placenta delivery and evacuation of clots from vaginal vault/lower uterine segment, miso 600 mcg given PO. Fundus firm below umbilicus, first degree laceration repaired with 3.0 Vicryl using topical benzocaine 20% aerosol spray anesthetic. QBL 800 ml, minimal lochia, strong family bonding noted. IV restarted for pitocin infusion, apgars 7/9, weight 3685 gms. Providers Nurse Account Manager Employee Benefits: Berncie Stewart Nurse: Nadiya Hobson Nurse: Cedric Cedillo Labor/Delivery Information Number of Babies in Womb: 1 Steroids Given: None Reason Steroids Not Administered: N/A Group Beta Strep: Positive Antibiotics Administered: Yes Number of Doses of Antibiotics: 4 Rubella Status: Immune Blood Type: O+ Varicella Immunity: Immune Shoulder Dystocia: No Stages of Labor Complete Dilatation Date: 09/30/24 Complete Dilatation Time: 07:40 ROM Baby A: 09/29/24 ROM Baby A: 13:00 ROM Total Time- Baby A: [id number] Infant Delivery Date-Baby A: 09/30/24 Infant Delivery Time-Baby A: 07:43 Labor Stage 2 Duration: 3 minutes Placenta Delivery Date-Baby A: 09/30/24 Placenta Delivery Time-Baby A: 07:50 Labor-Stage 3 Duration: 7 minutes Placenta Status: Delivered Baby A Gender: Male Gestational Status: Term (39-41.6 wks) Gestational Age in Weeks/Days: 39 Weeks and 3 Days weight: 8 lb 1.985 oz Weight Comment: 3685 gms Length-Baby A: 21 in Head Circumference-Baby A: 14 in Score-1 Minute Interval(Baby A) Heart Rate-1 minute: 100 BPM or Greater Respiratory Effort- 1 minute: Slow Respiration/Weak Cry Muscle Tone-1 minute: Active Movement Reflex Response-1 minute: Minimal Response Color-1 minute: Bluish Hands or Feet Total Score-1 minute: 7 Score-5 Minute Interval(Baby A) Heart Rate- 5 minute: 100 BPM or Greater Respiratory Effort-5 minute: Spontaneous/Strong Cry Muscle Tone-5 minute: Active Movement Reflex Response-5 minute: Prompt Response Color-5 minute: Bluish Hands or Feet Total Score- 5 minute: 9 Procedure Procedures: Cord Blood Collection Interventions Repair of Laceration Type: Perineal, Laceration Extension: First Degree. Sponge Count Correct: Vaginal Sweep Peformed, Sharp Count Correct: Yes.
[2024-10-01 06:44] LABS: HGB 10.4 g/dL (11.2-15.7); MCH 25.9 pg (27.0-33.0); MCHC 32.5 % (32.0-36.0); MCV 80 fL (80-95); MPV 10.4 fL (8.0-11.0); Platelet Count 255 10^3/uL (130-400); RBC 4.01 10^6/uL (3.93-5.22); RDW 14.2 % (11.7-14.6); WBC 15.39 10^3/uL (4.4-10.8)
[2024-10-01 08:30] VITALS: BP 116/78; PULSE 99; RESP 18; TEMP 36.6; O2SAT 99
[2024-10-01] MEDS: Acetaminophen 325 MG TAB 650 MG PO (08:44)
[2024-10-01] MEDS: Ibuprofen 600 MG TAB PO (08:44)
--- NOTE | 2024-10-01 12:41 | DSE_ITS ---
Date of service: 10/01/24 Time of Service: 12:41 DS: Diagnosis Discharge Diagnosis (1) Term of male : Status: Acute Asessment and Plan: Caring for baby independently. Pain is managed well with oral analgesics. Voiding without difficulty. well. Hgb 10.4 this morning A - stable mother and baby , Post day 1 P - Discharge to home otilio. Routine post instructions. [facility]. Discharge Plan Disposition Patient Disposition: Home Condition: Good Discharge Details Reason For Visit: PROM at term Admit Date/Time: 09/29/24 17:17 Admit Provider: Bernice Stewart Attending Provider: Bernice Stewart Primary Care Provider: CHAPARRO OSBORNE Home Meds and New Rx's Prescriptions: No Action Classic 28 mg iron- 800 mcg tablet PO DAILY Discharge Instructions Stand Alone Forms: BC Instructions, BC Post Vaginal Deliver Activity:: Activity as Tolerated Equipment/Supplies:: No Equipment Needed Diet:: As Tolerated Discharge Orders Discharge Orders: Discharge Order (Routine); Ordered 10/01/24 Ordered By: Marie Sims OB:DS Summary Summary Vaginal Delivery Method: Spontaneaous Laceration Description: Perineal Laceration Extension: First Degree Contraception Discussed Contraception Discussed: Yes Contraceptive Plan: IUD, [place] Gender-Baby A: Male weight: 8 lb 1.985 oz Status at Discharge Functional status at discharge: independent ambulation Overall status at discharge: patient is back to baseline Mental Status: mental status grossly normal Speech and Movement: speech and movement normal Mood: congruent mood Affect: normal affect Quality:SDOH Health Related Social Needs: No Data to Display Exam Physical Exam Vital signs: Temp Pulse Resp BP Pulse Ox 97.9 F 99 H 18 116/78 99 10/01/24 08:30 10/01/24 08:30 10/01/24 08:30 10/01/24 08:30 10/01/24 08:30 Vital Signs Reviewed: Yes Constitutional Constitutional: no acute distress Neck Exam Neck Exam: Normal Respiratory Exam Respiratory Exam: Normal Cardiovascular Exam Cardiovascular Exam: Normal Fundal Exam Fundus: Below Umbilicus Extremities Exam Extremity Exam: Normal Skin Exam Skin Exam: Normal Psychiatric Exam Psychiatric Exam: Normal PFSH All Active Problems (Updated 10/01/24 @ 12:43 by Marie Sims CNM) Term of male (Acute) BMI 35.0-35.9,adult (Acute) Medical History (Updated 10/01/24 @ 12:43 by Marie Sims CNM) Missed menses Corns and callosities Pain in left foot Achilles tendinitis of left lower extremity Contracture of left Achilles tendon Dysmenorrhea (05/07/15) Family History Father Hyperlipidemia Hypertension Paternal Grandfather Diabetes Social History Smoking/Tobacco Use Status: Never Second Hand Exposure: No Smoking risk assessment performed?: Yes Alcohol Intake: former Drug use: Never Substance use type: does not use Housing: house Sexually active: Yes Do you think of yourself as: straight/heterosexual Current gender identity: female What is your relationship status?: Panel score (0-1 are the most socially isolated patients): 1 What type of physical activity do you participate in: regular exercise Duration: 15-30 minutes/day Frequency: 5-6 times per week Seatbelt use: always Drive intox or ride w/intox driver guard: No Do you feel safe at home: Yes Do you feel safe in your relationship?: Yes Female Reproductive History Menstrual control method: progestin IUCD History History 2 Para 1 Hx # Term Pregnancies 1 Multiple births 0 Hx # Pregnancies 0 Ectopic pregnancies 0 AB induced 0 Hx Number of Living Children 1 AB spontaneous 0 Past Pregnancies Del. Date GA/Weeks # Preg Succ Route Wgt Sex Labor Lgth Anesth esia Location [facility] 07/07/22 40 No Yes vaginal 8 lb 13 oz Male 4 hour active phase GIGI [facility] Delivery Date: 07/07/22 Last Updated by: Marie Sims CNM AROM & nitrous, prodromal labor and therapeutic rest Dangelo Avila DS: Data Vitals/I&O Vitals and I&O: Vital Signs Temperature 97.9 F 10/01/24 08:30 Temperature 98.2 F 09/30/24 06:44 Temperature Source Oral 10/01/24 08:30 Pulse 99 H 10/01/24 08:30 Pulse 96 09/30/24 06:44 Pulse Rhythm Regular 10/01/24 08:30 Respiratory Rate 18 10/01/24 08:30 Respiratory Depth Normal 10/01/24 08:30 Blood Pressure 116/78 10/01/24 08:30 Blood Pressure 131/80 09/30/24 06:44 Blood Pressure Mean 90 10/01/24 08:30 Pulse Oximetry 99 10/01/24 08:30 Oxygen Delivery Method Room Air 09/29/24 17:54 Oxygen Flow Rate 0 09/29/24 17:54 Pain Level 1 10/01/24 08:44 Comment RN discussed with CNM about blood pressure. Patient denies headache, vision changes, sharp pain. RN will recheck blood pressure in 1 hour 09/30/24 15:31 Intake & Output 09/30/24 10/01/24 10/01/24 23:59 11:59 23:59 Intake Total 500 / 610 Output Total 1150 / 1200 Balance -650 / -590 Intake: IV 500 / 610 Output: Urine 1150 / 1200 Other: Urine Color [place] Urine Appearance Clear Urine Odor None Data Completed and Pending Labs on day of discharge: Labs from last 24 hours 10/01/24 06:00 WBC 15.39 H RBC 4.01 Hgb 10.4 L Hct 32.0 L MCV 80 MCH 25.9 L MCHC 32.5 RDW 14.2 Plt Count 255 MPV 10.4
== END 2024-10-01 13:30 | disposition home or self-care (01) | DRG 807 ==
PROVIDERS: Advanced Practice Midwife; Admitting Provider Advanced Practice Midwife; PCP Nurse Practitioner Family; Visit Provider Advanced Practice Midwife
DX: O42.92 Full-term premature rupture of membranes, unspecified as to length of time between rupture and onset of labor (principal); Z37.0 Single live birth; O99.824 Streptococcus B carrier state complicating childbirth; Z3A.39 39 weeks gestation of pregnancy; O69.81X0 Labor and delivery complicated by cord around neck, without compression, not applicable or unspecified; O70.0 First degree perineal laceration during delivery
CPT/HCPCS: 59025; 36415; 85027; 86850; 86900; 86901; J2540; J2590